=== PATIENT | male | born 1960 | race Caucasian/White ===

== ENCOUNTER 2023-10-14 11:36 | Inpatient (IN) ==
[2023-10-14] MEDS: SODIUM CHLORIDE 0.9% 1,000 ML IV SCH (11:55)
[2023-10-14 12:06] LABS: iSTAT Creatinine 2.4 mg/dl (0.6-1.3); iSTAT Hemoglobin 10.2 g/dl (14.0-18.0); iSTAT Ionized Calcium 1.1 mmol/l (1.12-1.32); iSTAT Potassium 2.7 mmol/L (3.3-5.0)
[2023-10-14 12:31] LABS: Hematocrit (blood only) 27.9 % (42.0-52.0); Hemoglobin 9.6 g/dl (14.0-18.0); Mean Corpuscular Hemoglobin 31.2 pg (25.0-34.0); Mean Corpuscular Hgb Conc 34.4 g/dL (32.0-36.0); Mean Corpuscular Volume 90.6 fL (80.0-100.0); Platelet Count 28 K/uL (130-400); RDW Coefficient of Variation 20.4 % (11.5-14.5); Red Blood Count 3.08 M/uL (4.70-6.10); White Blood Count 0.85 K/ul (4.8-10.8)
[2023-10-14] MEDS: CEFEPIME 2,000 MG/20 ML VIAL IV STA (12:37)
[2023-10-14 12:39] LABS: Albumin Level 2.6 gm/dl (3.4-5.0); BUN Creatinine Ratio 24.6 (10-20); Bilirubin Direct 0.3 mg/dl (0-0.2); Bilirubin,Total 0.6 mg/dl (0.2-1.0); Calcium 8.2 mg/dl (8.6-10.3); Creatinine Clr Calc Pharmacy 22.6 ml/min; Est GFR (African American) 31.2 ml/min; Est GFR (Non-African American) 26.9 ml/min; Magnesium 2.2 mg/dl (1.7-2.4); Potassium 2.8 mmol/L (3.5-5.1); Total Protein 5.2 gm/dl (6.0-8.3)
--- NOTE | 2023-10-14 12:41 | Emergency Department Note ---
History of Present Illness General Chief complaint: Hypotension Stated complaint: HYPOTENSION, ABNORMAL LABS Time Seen by Provider: 10/14/23 11:43 Source: patient and EMS History of Present Illness Provider complaint: Hypotension 63-year-old male with history of AML presents emergency department for hypotension. EMS brought the patient in and reports that the presents stated that the patient was weak and febrile. Patient is reporting abdominal pain. He is reporting nausea vomiting and diarrhea. According to EMS, the presenting health provider stated that the patient had a recent treatment of chemotherapy. Patient states he has not been eating or drinking for the last week. Home Medications Medication Instructions Recorded Confirmed Type allopurinol 300 mg tablet 300 mg PO DAILY 07/06/23 07/17/23 History ascorbic acid (vitamin C) 500 mg 500 mg PO DAILY 07/06/23 07/17/23 History tablet (Vitamin C) buspirone 10 mg tablet 20 mg PO BID 07/06/23 07/17/23 History ferrous sulfate 324 mg (65 mg 324 mg PO DAILY 07/06/23 07/17/23 History iron) tablet,delayed release hydroxyzine HCl 50 mg tablet 100 mg PO HS 07/06/23 07/17/23 History levofloxacin 500 mg tablet 500 mg PO DAILY 07/06/23 07/17/23 History oxcarbazepine 150 mg 150 mg PO BID 07/06/23 07/17/23 History tablet,extended release 24 hr oxcarbazepine 300 mg tablet 300 mg PO BID 07/06/23 07/17/23 History posaconazole 100 mg tablet,delayed 300 mg PO .DAILY AT NOON 07/06/23 07/17/23 History release prazosin 1 mg capsule 3 mg PO HS 07/06/23 07/17/23 History camphor-menthol topical ointment 1 applic topical BID 07/11/23 07/17/23 History cyanocobalamin (vitamin B-12) 1,000 mcg PO DAILY 07/11/23 07/17/23 History 1,000 mcg tablet (Vitamin B-12) guaifenesin 100 mg/5 mL oral liquid 300 mg PO TID PRN Cough 07/11/23 07/17/23 History mineral oil-hydrophil petrolat 1 applic topical BID 07/11/23 07/17/23 History topical ointment (DermaPhor topical ointment) venetoclax 10 mg tablet (Venclexta) 70 mg PO DAILY 07/11/23 07/17/23 History vit B complex and vit C 1 tab PO QPM 07/11/23 07/17/23 History no.24-ferrous fum 66 mg-folic 1,000 mcg tablet (Nephron FA) Allergies Allergy/AdvReac Type Severity Reaction Status Date / Time No Known Allergies Allergy Verified 07/17/23 10:29 Past Med/Surg History Problem List (Updated 10/14/23 @ 14:50 by Sandy Schmidt DO) PTSD (post-traumatic stress disorder) Anxiety Bipolar 2 disorder Acute diarrhea Neutropenic fever (Acute) Acute hypokalemia (Acute) KRISHAN (acute kidney injury) (Acute) Medical History (Updated 10/14/23 @ 14:50 by Sandy Schmidt DO) AML (acute myeloblastic leukemia) Surgical History History of hernia repair Social History Smoking Status: Unknown if ever smoked Feels Safe at Home: Yes Physical Exam Vital Signs Vital Signs - 24 hr 10/14/23 11:43 10/14/23 11:51 10/14/23 11:51 Temperature 37.1 C Temperature Source Oral Pulse Rate 108 H Pulse Rate [Apical] 105 H Pulse Rate from SpO2 Sensor Respiratory Rate 23 24 Respiratory Effort / Characteristics Short of Breath Respiratory Depth Normal Respiratory Pattern Regular Blood Pressure 91/61 L Blood Pressure [Left Arm] 106/64 Blood Pressure Mean 71 Blood Pressure Mean [Left Arm] 78 Pulse Oximetry 95 95 96 Oxygen Delivery Method Room Air Room Air Room Air Sepsis Recent Fever Within 48 Hours No Sepsis New/Unexplained Change in Mental Status No Sepsis Action Taken by Nursing Physician Notified 10/14/23 11:53 10/14/23 11:53 10/14/23 11:57 Temperature Temperature Source Pulse Rate 103 H Pulse Rate [Apical] Pulse Rate from SpO2 Sensor 104 H Respiratory Rate 22 Respiratory Effort / Characteristics Respiratory Depth Respiratory Pattern Blood Pressure 106/64 106/64 Blood Pressure [Left Arm] Blood Pressure Mean 71 71 Blood Pressure Mean [Left Arm] Pulse Oximetry 94 Oxygen Delivery Method Sepsis Recent Fever Within 48 Hours Sepsis New/Unexplained Change in Mental Status Sepsis Action Taken by Nursing 10/14/23 11:58 10/14/23 11:58 10/14/23 12:13 Temperature Temperature Source Pulse Rate 102 H Pulse Rate [Apical] 101 H 99 H Pulse Rate from SpO2 Sensor Respiratory Rate 21 21 22 Respiratory Effort / Characteristics Non-Labored Spontaneous Respiratory Depth Normal Respiratory Pattern Blood Pressure Blood Pressure [Left Arm] 106/64 94/60 L Blood Pressure Mean Blood Pressure Mean [Left Arm] 78 71 Pulse Oximetry 96 96 96 Oxygen Delivery Method Room Air Room Air Sepsis Recent Fever Within 48 Hours Sepsis New/Unexplained Change in Mental Status Sepsis Action Taken by Nursing 10/14/23 12:22 10/14/23 12:28 10/14/23 12:30 Temperature Temperature Source Pulse Rate 100 H Pulse Rate [Apical] 98 H Pulse Rate from SpO2 Sensor Respiratory Rate 22 Respiratory Effort / Characteristics Respiratory Depth Respiratory Pattern Blood Pressure 94/60 L Blood Pressure [Left Arm] 111/57 L Blood Pressure Mean 77 Blood Pressure Mean [Left Arm] 75 Pulse Oximetry 97 Oxygen Delivery Method Sepsis Recent Fever Within 48 Hours Sepsis New/Unexplained Change in Mental Status Sepsis Action Taken by Nursing 10/14/23 12:30 10/14/23 12:30 10/14/23 12:30 Temperature Temperature Source Pulse Rate 97 H Pulse Rate [Apical] Pulse Rate from SpO2 Sensor 97 H Respiratory Rate 21 Respiratory Effort / Characteristics Respiratory Depth Respiratory Pattern Blood Pressure 111/57 L 111/57 L Blood Pressure [Left Arm] Blood Pressure Mean 95 95 Blood Pressure Mean [Left Arm] Pulse Oximetry 95 Oxygen Delivery Method Sepsis Recent Fever Within 48 Hours Sepsis New/Unexplained Change in Mental Status Sepsis Action Taken by Nursing 10/14/23 12:45 10/14/23 12:45 10/14/23 13:00 Temperature Temperature Source Pulse Rate 96 H Pulse Rate [Apical] 96 H Pulse Rate from SpO2 Sensor 96 H Respiratory Rate 20 22 Respiratory Effort / Characteristics Respiratory Depth Respiratory Pattern Blood Pressure 125/62 Blood Pressure [Left Arm] 121/63 Blood Pressure Mean 90 Blood Pressure Mean [Left Arm] 82 Pulse Oximetry 95 96 Oxygen Delivery Method Sepsis Recent Fever Within 48 Hours Sepsis New/Unexplained Change in Mental Status Sepsis Action Taken by Nursing 10/14/23 13:00 10/14/23 13:00 10/14/23 13:53 Temperature Temperature Source Pulse Rate 97 H Pulse Rate [Apical] Pulse Rate from SpO2 Sensor 97 H Respiratory Rate 21 Respiratory Effort / Characteristics Respiratory Depth Respiratory Pattern Blood Pressure 121/63 121/63 104/59 L Blood Pressure [Left Arm] Blood Pressure Mean 84 84 74 Blood Pressure Mean [Left Arm] Pulse Oximetry 96 Oxygen Delivery Method Sepsis Recent Fever Within 48 Hours Sepsis New/Unexplained Change in Mental Status Sepsis Action Taken by Nursing 10/14/23 13:53 10/14/23 14:00 10/14/23 14:30 Temperature Temperature Source Pulse Rate 95 H 97 H Pulse Rate [Apical] Pulse Rate from SpO2 Sensor 95 H 98 H Respiratory Rate 21 22 Respiratory Effort / Characteristics Respiratory Depth Respiratory Pattern Blood Pressure 104/59 L 107/60 96/57 L Blood Pressure [Left Arm] Blood Pressure Mean 74 75 63 Blood Pressure Mean [Left Arm] Pulse Oximetry 97 97 Oxygen Delivery Method Sepsis Recent Fever Within 48 Hours Sepsis New/Unexplained Change in Mental Status Sepsis Action Taken by Nursing Physical Exam GENERAL: Ill-appearing. HENT: Exam performed. - Head: Normocephalic and atraumatic. - Right Ear: External ear normal. No mastoid erythema - Left Ear: External ear normal. No mastoid erythema - Mouth/Throat: The oropharynx is clear and moist. No trismus in the jaw. No dental abscesses or uvula swelling. No oropharyngeal exudate or tonsillar abscesses. EYES: Conjunctivae and EOM are normal. Pupils are equal, round, and reactive to light. Right eye exhibits no discharge. Left eye exhibits no discharge. No scleral icterus. NECK: Normal range of motion. Neck supple. No JVD present. CV: Tachycardic rate, regular rhythm, normal heart sounds and intact distal pulses. There is no peripheral edema. Palpable radial pulses bue. PULM/CHEST: Effort normal and breath sounds normal. No respiratory distress. No stridor. He has no wheezes. He has no rales. ABD: The abdomen is soft. Diffuse tenderness to palpation NEURO: Motor and sensation grossly intact. Course Course 1143: The patient was evaluated in room A1. A complete history and physical exam was performed Cardiac monitoring: An order was placed for continuous cardiac monitoring. The monitor shows a rate of 100 with sinus rhythm interpreted by sc Sepsis protocols initiated. 1246: Vital signs improved with normal saline bolus. Patient is leukopenic and thrombocytopenic. Procalcitonin is elevated. Patient was febrile according to the care home paperwork at the care home. Lactic acid within normal limits. Patient will be treated with cefepime for broad-spectrum antibiotic coverage. Potassium 2.8. Potassium repletion started in the emergency department. 1308: Vital signs stable. Spoke with care home nurse J Luis who stated that there is no Dr. THOMAS there. She states she does not know when the patient last had a chemotherapy infusion but the patient did receive venclexta yesterday. Bedside ultrasound shows scant ascites with no pocket of fluid amenable to bedside drainage secondary to proximity to bowel loops. 1315: Vital signs stable. Spoke with Dr. [facility] hematology oncology and she states that the patient does follow with them and she agrees that the patient should be admitted for his KRISHAN hypokalemia. She agrees that the patient be continued on antibiotics and be treated as neutropenic fever. Patient will be admitted to the hospitalist team. Administered Medications Potassium Chloride/Sodium Chloride (Normal Saline W/20 Meq Kcl) 20 meq in 1,000 mls @ 125 mls/hr IV .Q8H DAVID; Protocol Stop: 11/13/23 12:44 Last Admin: 10/14/23 12:51 Dose: 125 mls/hr Documented By: PRASHANT Potassium Chloride (K Jake / Wtr) 10 meq in 100 mls @ 100 mls/hr IV Q1H DAVID Stop: 10/14/23 16:44 Last Admin: 10/14/23 14:47 Dose: 100 mls/hr Documented By: Infusion: 10/14/23 14:47 Dose: Infused Documented By: Admin: 10/14/23 13:55 Dose: 100 mls/hr Documented By: Infusion: 10/14/23 13:51 Dose: Infused Documented By: Admin: 10/14/23 12:51 Dose: 100 mls/hr Documented By: PRASHANT Discontinued Medications Sodium Chloride (Nss) 1,000 mls @ 999 mls/hr IV .Q1H1M DAVID Stop: 10/14/23 12:45 Last Infusion: 10/14/23 12:57 Dose: Infused Documented By: Admin: 10/14/23 11:55 Dose: 999 mls/hr Documented By: PRASHANT Cefepime HCl (Maxipime) 2,000 mg in 20 mls @ 5 mls/min IV NOW STA; Protocol Stop: 10/14/23 12:37 Last Admin: 10/14/23 12:37 Dose: 5 mls/min Documented By: PRASHANT Medical Decision Making Laboratory Data Attestation: I reviewed the patient's lab results. 10/14/23 11:52 10/14/23 11:52 Lab Results 10/14/23 10/14/23 10/14/23 Range/Units 11:52 11:54 12:02 WBC 0.85 L* (4.8-10.8) K/ul RBC 3.08 L (4.70-6.10) M/uL Hgb 9.6 L (14.0-18.0) g/dl POC Hgb 10.2 L (14.0-18.0) g/dl Hct 27.9 L (42.0-52.0) % POC Hct 30 L (42-52) % MCV 90.6 (80.0-100.0) fL MCH 31.2 (25.0-34.0) pg MCHC 34.4 (32.0-36.0) g/dL RDW Std Deviation 65.0 H (36.4-46.3) fL RDW Coeff of Dominic 20.4 H (11.5-14.5) % Plt Count 28 L* (130-400) K/uL Immature Gran % (Auto) 9.4 % Neut % (Auto) 67.1 % Lymph % (Auto) 11.8 % Yancey % (Auto) 8.2 % Eos % (Auto) 0.0 % Baso % (Auto) 3.5 % Neut # (Auto) 0.57 L* (1.40-6.50) K/uL Lymph # (Auto) 0.10 L (1.20-3.40) K/uL Yancey # (Auto) 0.07 L (0.11-0.59) K/uL Eos # (Auto) 0.00 (0.00-0.50) K/uL Baso # (Auto) 0.03 (0.00-0.20) K/uL Immature Gran # (Auto) 0.08 (0.01-0.20) K/uL Toxic Granulation 2+ Dohle Bodies 2+ Polychromasia 1+ Anisocytosis Present Ovalocytes 1+ Echinocytes 2+ PT 11.1 (9.0-12.0) Seconds INR 1.0 (0.9-1.1) APTT 32 H (21-31) Seconds PTT Ratio 1.2 POC Sodium 138 (135-144) mmol/L Sodium 138 (136-145) mmol/L POC Potassium 2.7 L (3.3-5.0) mmol/L Potassium 2.8 L (3.5-5.1) mmol/L POC Chloride 101 (101-112) mmol/L Chloride 101 (98-107) mmol/L Carbon Dioxide 28 (21-32) mmol/L POC Total CO2 23 L (24-31) mmol/L Anion Gap 9 (3-11) POC Anion Gap 17.0 (16-25) mmol/L POC BUN 45 H (7-18) mg/dl BUN 60 H (6-23) mg/dl Creatinine 2.44 H (0.6-1.4) mg/dl POC Creatinine 2.4 H (0.6-1.3) mg/dl Est Cr Clr Drug Dosing 22.6 ml/min Est GFR ( Amer) 31.2 ml/min Est GFR (Non-Af Amer) 26.9 ml/min BUN/Creatinine Ratio 24.6 H (10-20) Glucose 110 H (70-99(Fasting)) mg/dl POC Glucose (other) 113 H (70-99) mg/dl Lactate 1.6 (0.4-2.0) mmol/L Calcium 8.2 L (8.6-10.3) mg/dl POC Ioniz Calcium Vince 1.10 L (1.12-1.32) mmol/l Magnesium 2.2 (1.7-2.4) mg/dl Total Bilirubin 0.6 (0.2-1.0) mg/dl Direct Bilirubin 0.3 H (0-0.2) mg/dl AST 19 (13-39) U/L ALT 20 (7-52) U/L Alkaline Phosphatase 82 (34-104) U/L Ammonia 18.0 (18-72) umol/L Troponin I High Sens 13.8 (0-20) pg/ml Total Protein 5.2 L (6.0-8.3) gm/dl Albumin 2.6 L (3.4-5.0) gm/dl Lipase 10 L (11-82) U/L Procalcitonin 4.65 H (0-0.5) ng/ml Adenovirus (PCR) Not Detected (NotDetected) B. pertussis DNA (PCR) Not Detected (NotDetected) B.parapertussis DNA PCR Not Detected (NotDetected) C. pneumoniae DNA (PCR) Not Detected (NotDetected) Coronavirus OC43 (PCR) Not Detected (NotDetected) Coronavirus HKU1 (PCR) Not Detected (NotDetected) Coronavirus 229E (PCR) Not Detected (NotDetected) SARS-CoV-2 (PCR) Not Detected (NotDetected) Coronavirus NL63 (PCR) Not Detected (NotDetected) Human Metapneumovir PCR Not Detected (NotDetected) Influenza Type A (PCR) Not Detected (NotDetected) Influenza Type B (PCR) Not Detected (NotDetected) M. pneumoniae (PCR) Not Detected (NotDetected) Parainfluenza 1 (PCR) Not Detected (NotDetected) Parainfluenza 2 (PCR) Not Detected (NotDetected) Parainfluenza 3 (PCR) Not Detected (NotDetected) Parainfluenza 4 (PCR) Not Detected (NotDetected) RSV (PCR) Not Detected (NotDetected) Entero/Rhino (PCR) Not Detected (NotDetected) Imaging Data Attestation: I personally reviewed and interpreted this imaging study as follows: My Impression: Chest x-ray negative. Airway clear. No pneumothorax. No consolidation. No cardiomegaly or cephalization.. No free air under the diaphragm. No fractures of the skeletal structures. Mediport in place. Radiologist's Impression: Chest X-Ray 10/14/23 11:43 XR chest 1V portable CLINICAL HISTORY: Sepsis TECHNIQUE: Single frontal radiograph of the chest was obtained. Comparison: None available at the time of this dictation. FINDINGS: Right portacatheter is seen. Calcified aortic knob is seen. The lungs are clear. No evidence of pleural effusion or pneumothorax. IMPRESSION: No acute abnormalities and in particular no radiographic evidence of pneumonia. ACT 112: Negative or not required by law. Electronically signed by: Harvey Lopez M.D. 10/14/2023 1:[address] 10/14/23 11:47 CT head/brain wo con CLINICAL HISTORY: weakness Technique: Contiguous axial CT images of the head were acquired from the base of the skull to the vertex without intravenous contrast administration. Images were viewed in brain, subdural and bone windows. Automated dose lowering techniques and/or adjustment according to patient size were utilized for this exam. Comparison: None available at the time of this dictation. Findings: The ventricles, basal cisterns, and cerebral sulci are normal. There is no acute intracranial hemorrhage or evidence of acute territorial infarction. Neither mass effect, shift of the midline structures, nor abnormal extra-axial fluid collections are shown. Imaged portions of the paranasal sinuses and mastoid air cells are clear. The orbits appear normal. There are no acute fractures of the calvaria or scalp swelling. Impression: No acute intracranial hemorrhage, no evidence of acute territorial infarction or other acute intracranial disease process. ACT 112: Negative or not required by law. Electronically signed by: Harvey Lopez M.D. 10/14/2023 12:56 PM Abdomen/Pelvis CT 10/14/23 12:03 CT abd pelvis wo con CLINICAL HISTORY: abd pain TECHNIQUE: Helical axial images of the abdomen and pelvis were obtained. Automated dose lowering techniques and/or adjustment according to patient size were utilized for this exam. This exam was performed without intravenous contrast. CT DOSE: 1440.58 mGy.cm COMPARISON: None available at the time of this dictation. FINDINGS: Lower chest: Bibasilar atelectasis versus scarring is seen. Liver: Unremarkable. No focal lesions are seen. Gallbladder and biliary tree: No calcified gallstones. Normal caliber wall. No intra- or extrahepatic biliary ductal dilation. Pancreas: Unremarkable, no focal lesions. Spleen: Unremarkable. Adrenals: Unremarkable. Kidneys and ureters: Left renal cyst is seen. Bladder: Unremarkable. Reproductive organs: Unremarkable. Bowel: Diffuse thickening and fat stranding is seen about the entirety of the colon. Lymph nodes Retroperitoneal: Unremarkable. Pelvic: Unremarkable. Mesenteric: Unremarkable. Peritoneum: Mild peritoneal stranding is seen with trace ascites. Increased vascularity is seen about the colon. Vessels: Atherosclerotic calcifications are seen. Abdominal wall: Unremarkable. Bones: Degenerative changes in the visualized spine. Grade 1 anterolisthesis seen at L4-L5. IMPRESSION: Inflammatory changes throughout the colon are compatible with a nonspecific colitis. ACT 112: Negative or not required by law. Electronically signed by: Harvey Lopez M.D. 10/14/2023 1:07 PM ECG Data Attestation: I personally reviewed and interpreted this ECG as follows: Rate (beats per minute): 108 Rhythm: + sinus tachycardia ECG Intervals/blocks: + Normal QRS, + Normal TN and + Normal QT-c ECG ST segments: + Normal ST segments [facility] Narrative 1143: The patient was evaluated in room A1. A complete history and physical exam was performed Cardiac monitoring: An order was placed for continuous cardiac monitoring. The monitor shows a rate of 100 with sinus rhythm interpreted by sc Sepsis protocols initiated. 1246: Vital signs improved with normal saline bolus. Patient is leukopenic and thrombocytopenic. Procalcitonin is elevated. Patient was febrile according to the care home paperwork at the care home. Lactic acid within normal limits. Patient will be treated with cefepime for broad-spectrum antibiotic coverage. Potassium 2.8. Potassium repletion started in the emergency department. 1308: Vital signs stable. Spoke with care home nurse J Luis who stated that there is no Dr. THOMAS there. She states she does not know when the patient last had a chemotherapy infusion but the patient did receive venclexta yesterday. Bedside ultrasound shows scant ascites with no pocket of fluid amenable to bedside drainage secondary to proximity to bowel loops. 1315: Vital signs stable. Spoke with Dr. [facility] hematology oncology and she states that the patient does follow with them and she agrees that the patient should be admitted for his KRISHAN hypokalemia. She agrees that the patient be continued on antibiotics and be treated as neutropenic fever. Patient will be admitted to the hospitalist team. Impression & Plan KRISHAN (acute kidney injury), Acute hypokalemia, Neutropenic fever Discharge Plan Visit Data Chief Complaint: Hypotension Stated Complaint: HYPOTENSION, ABNORMAL LABS ED Provider: Breezy Edouard Discharge Problem: KRISHAN (acute kidney injury), Acute hypokalemia, Neutropenic fever Patient Disposition: Admitted As Inpatient Forms Stand Alone Forms: My [facility] Prescriptions Prescriptions: No Action prazosin 1 mg Capsule 3 mg PO HS hydroxyzine HCl 50 mg Tablet 100 mg PO HS oxcarbazepine 300 mg Tablet 300 mg PO BID buspirone [BuSpar] 10 mg Tablet 20 mg PO BID allopurinol 300 mg Tablet 300 mg PO DAILY levofloxacin 500 mg Tablet 500 mg PO DAILY ferrous sulfate 324 mg (65 mg iron) Tablet,Delayed Release (Dr/Ec) 324 mg PO DAILY oxcarbazepine 150 mg Tablet Extended Release 24 Hr 150 mg PO BID Rx Instructions: must be taken on empty stomach; no food at least 2 hrs before or 1 hr after dose posaconazole 100 mg Tablet,Delayed Release (Dr/Ec) 300 mg PO .DAILY AT NOON Rx Instructions: 3 tablet dose ascorbic acid (vitamin C) [Vitamin C] 500 mg Tablet 500 mg PO DAILY cyanocobalamin (vitamin B-12) [Vitamin B-12] 1,000 mcg Tablet 1,000 mcg PO DAILY Nephron FA 66 mg iron- 1,000 mcg Tablet 1 tab PO QPM Mentholatum Ointment 1 applic TOPICAL BID Venclexta 10 mg Tablet 70 mg PO DAILY guaifenesin [Robitussin] 100 mg/5 mL Liquid 300 mg PO TID PRN (Reason: Cough) Rx Instructions: 15 ml dose DermaPhor Ointment 1 applic TOPICAL BID Referrals Referrals: Eric HALE [Primary Care Provider] -
[2023-10-14 12:45] LABS: Partial Thromboplastin Ratio 1.2; Partial Thromboplastin Time 32 Seconds (21-31); Prothrombin Time 11.1 Seconds (9.0-12.0)
[2023-10-14 12:46] LABS: Troponin I High Sensitivity 13.8 pg/ml (0-20)
[2023-10-14 12:48] LABS: Anisocytosis Present; Dohle Bodies 2+; Echinocytes 2+; Ovalocytes 1+; Polychromasia 1+; Toxic Granulation 2+
[2023-10-14 12:50] LABS: Basophils # (auto) 0.03 K/uL (0.00-0.20); Basophils % (auto) 3.5 %; Immature Granulocytes # (auto) 0.08 K/uL (0.01-0.20); Immature Granulocytes % (auto) 9.4 %; Lymphocytes % (auto) 11.8 %; Monocytes # (auto) 0.07 K/uL (0.11-0.59); Monocytes % (auto) 8.2 %; Neutrophils # (auto) 0.57 K/uL (1.40-6.50); Neutrophils % (auto) 67.1 %
[2023-10-14] MEDS: POTASSIUM CHLORIDE / WTR 10 MEQ/100 ML PLCT IV SCH (12:51)
[2023-10-14] MEDS: NSS + 20MEQ KCL 20 MEQ/1,000 ML BAG IV SCH (12:51)
--- NOTE | 2023-10-14 12:57 | CT Scan Report ---
CT head/brain wo con CLINICAL HISTORY: weakness Technique: Contiguous axial CT images of the head were acquired from the base of the skull to the luis armando tommie without intravenous contrast administration. Images were viewed in brain, subdural and bone [facility] . Automated dose lowering techniques and/or adjustment according to patient size were utilized for this exam. Comparison: None available at the time of this dictation. Findings: The ventricles, basal cisterns, and cerebral sulci are normal. There is no acute intracranial hemorrh age or evidence of acute territorial infarction. Neither mass effect, shift of the midline structures , nor abnormal extra-axial fluid collections are shown. Imaged portions of the paranasal sinuses and mastoid air cells are clear. The orbits appear normal. There are no acute fractures of the calvaria or scalp swelling. Impression: No acute intracranial hemorrhage, no evidence of acute territorial infarction or other acute intracra nial disease process. ACT 112: Negative or not required by law. Electronically signed by: Harvey Lopez M.D. 10/14/2023 12:56 PM
[2023-10-14 12:58] LABS: Adenovirus PCR Not Detected (NotDetected); Bordetella parapertussis PCR Not Detected (NotDetected); Bordetella pertussis PCR Not Detected (NotDetected); Chlamydia pneumoniae PCR Not Detected (NotDetected); Coronavirus 229E PCR Not Detected (NotDetected); Coronavirus CoV-2 (COVID19)PCR Not Detected (NotDetected); Coronavirus HKU1 PCR Not Detected (NotDetected); Coronavirus NL63 PCR Not Detected (NotDetected); Coronavirus OC43PCR Not Detected (NotDetected); Human Metapneumovirus PCR Not Detected (NotDetected); Influenza A PCR Not Detected (NotDetected); Influenza B PCR Not Detected (NotDetected); Mycoplasma pneumoniae PCR Not Detected (NotDetected); Parainfluenza Virus 1 PCR Not Detected (NotDetected); Parainfluenza Virus 2 PCR Not Detected (NotDetected); Parainfluenza Virus 3 PCR Not Detected (NotDetected); Parainfluenza Virus 4 PCR Not Detected (NotDetected); Respiratory Syncytial VirusPCR Not Detected (NotDetected); Rhinovirus/Enterovirus PCR Not Detected (NotDetected)
--- NOTE | 2023-10-14 13:09 | CT Scan Report ---
CT abd pelvis wo con CLINICAL HISTORY: abd pain TECHNIQUE: Helical axial images of the abdomen and pelvis were obtained. Automated dose lowering tech niques and/or adjustment according to patient size were utilized for this exam. This exam was perfor med without intravenous contrast. CT DOSE: 1440.58 mGy.cm COMPARISON: None available at the time of this dictation. FINDINGS: Lower chest: Bibasilar atelectasis versus scarring is seen. Liver: Unremarkable. No focal lesions are seen. Gallbladder and biliary tree: No calcified gallstones. Normal caliber wall. No intra- or extrahepatic biliary ductal dilation. Pancreas: Unremarkable, no focal lesions. Spleen: Unremarkable. Adrenals: Unremarkable. Kidneys and ureters: Left renal cyst is seen. Bladder: Unremarkable. Reproductive organs: Unremarkable. Bowel: Diffuse thickening and fat stranding is seen about the entirety of the colon. Lymph nodes Retroperitoneal: Unremarkable. Pelvic: Unremarkable. Mesenteric: Unremarkable. Peritoneum: Mild peritoneal stranding is seen with trace ascites. Increased vascularity is seen about the colon. Vessels: Atherosclerotic calcifications are seen. Abdominal wall: Unremarkable. Bones: Degenerative changes in the visualized spine. Grade 1 anterolisthesis seen at L4-L5. IMPRESSION: Inflammatory changes throughout the colon are compatible with a nonspecific colitis. ACT 112: Negative or not required by law. Electronically signed by: Harvey Lopez M.D. 10/14/2023 1:07 PM
--- NOTE | 2023-10-14 13:27 | XRay Report ---
XR chest 1V portable CLINICAL HISTORY: Sepsis TECHNIQUE: Single frontal radiograph of the chest was obtained. Comparison: None available at the time of this dictation. FINDINGS: Right portacatheter is seen. Calcified aortic knob is seen. The lungs are clear. No evidence of pleur al effusion or pneumothorax. IMPRESSION: No acute abnormalities and in particular no radiographic evidence of pneumonia. ACT 112: Negative or not required by law. Electronically signed by: Harvey Lopez M.D. 10/14/2023 1:26 PM
--- NOTE | 2023-10-14 13:51 | History & Physical Report ---
Date of Service October 14, 2023 Assessment & Plan (1) Acute hypokalemia: (2) KRISHAN (acute kidney injury): (3) Neutropenic fever: (4) Acute diarrhea: (5) Bipolar 2 disorder: (6) Anxiety: (7) PTSD (post-traumatic stress disorder): Plan Pt is a 63 yo male with a significant past medical history of 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 #Acute diarrheal illness #Neutropenic fever - pt reports last chemo session was weeks ago, follows with oncology Dr. Juáerz - WBC count low on admission, but procal 4.65 - PICC line in place; blood cx pending, - urine cx pending - CTAP shows nonspecific colitis, CXR neg, head CT unremark, stool PCR biofire pending along with c diff - continue cefepime #Pancytopenia #Hx AML on chemotherapy - Plt on admission 28, WBC count 0.85, hgb 9.6 - oncology consulted - holding home venetoclax in the setting of acute illness #KRISHAN - baseline Cr appears to be 0.8, presents with Cr 2.44 - most likely pre-renal in the setting of acute copious diarrheal illness with dehydration on admission - continue IVF, diet placed and encouraged po intake in addition to fluids #Hypokalemia - in setting of poor po intake x1 week with copious diarrheal illness and dehydration - K 2.8 on admission - IV repletion running, to recheck level tonight 8 pm #Bipolar 2 disorder #Anxiety #PTSD - continue home buspirone - continue home hydroxyzine - continue home prazosin - continue home oxcarbazepine DVT ppx: Deferred chemical ppx today in the setting of recurrent nose bleeds and marked thrombocytopenia <50, SCDs ordered History of Present Illness Chief Complaint: Acute illness Primary Care Provider: GEOFFREY Reyes Pt is a 63 yo male with a significant past medical history of 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 Pt states that for the last week or so he has felt generally unwell, and for the last 5-6 days he has had diarrhea 8+ times each day that has been watery but nonbloody. He states that he has also had fever, chills, diffuse body aches, and sweats for the same amount of time. No chest pain, shortness of breath, nausea or vomiting, or dysuria today or the last few days. He states he has never had anything like this before. He also notes several episodes of nosebleeds the last few days, but no blood in the urine or stool. He states he had chemotherapy months ago in [place] that seemed to go fine, and his last chemo session was a few months ago. Overall pt is not overly conversational today to discuss much of past medical history but denies prior DC or CVA. Allergies Allergy/AdvReac Type Severity Reaction Status Date / Time No Known Allergies Allergy Verified 10/14/23 15:04 Home Medications Medication Instructions Recorded Confirmed Type allopurinol 300 mg tablet 300 mg PO DAILY 07/06/23 10/14/23 History ascorbic acid (vitamin C) 500 mg 500 mg PO DAILY 07/06/23 10/14/23 History tablet (Vitamin C) buspirone 10 mg tablet 20 mg PO BID 07/06/23 10/14/23 History ferrous sulfate 324 mg (65 mg 324 mg PO DAILY 07/06/23 10/14/23 History iron) tablet,delayed release oxcarbazepine 150 mg 150 mg PO BID 07/06/23 10/14/23 History tablet,extended release 24 hr oxcarbazepine 300 mg tablet 300 mg PO BID 07/06/23 10/14/23 History posaconazole 100 mg tablet,delayed 300 mg PO .DAILY AT NOON 07/06/23 10/14/23 History release prazosin 1 mg capsule 3 mg PO HS 07/06/23 10/14/23 History cyanocobalamin (vitamin B-12) 1,000 mcg PO DAILY 07/11/23 10/14/23 History 1,000 mcg tablet (Vitamin B-12) venetoclax 10 mg tablet (Venclexta) 20 mg PO DAILY 07/11/23 10/14/23 History acyclovir 400 mg tablet 400 mg PO BID 10/14/23 10/14/23 History bismuth subsalicylate 262 mg/15 mL 262 mg PO TID PRN DIRECTED 10/14/23 10/14/23 History oral suspension hydroxyzine pamoate 50 mg capsule 100 mg PO HS 10/14/23 10/14/23 History potassium chloride 20 mEq 20 meq PO DAILY 10/14/23 10/14/23 History tablet,extended release venetoclax 50 mg tablet (Venclexta) 50 mg PO DAILY 10/14/23 10/14/23 History vit B complex and vit C 1 tab PO QPM 10/14/23 10/14/23 History no.24-ferrous fum 66 mg-folic 1,000 mcg tablet (Nephron FA) Past Med/Surg History Problem List (Updated 10/14/23 @ 14:50 by Sandy Schmidt DO) PTSD (post-traumatic stress disorder) Anxiety Bipolar 2 disorder Acute diarrhea Neutropenic fever (Acute) Acute hypokalemia (Acute) KRISHAN (acute kidney injury) (Acute) Medical History (Updated 10/14/23 @ 14:50 by Sandy Schmidt DO) AML (acute myeloblastic leukemia) Surgical History History of hernia repair Social History Smoking Status: Unknown if ever smoked Feels Safe at Home: Yes Review of Systems Review of Systems: Per HPI. Physical Exam Physical Exam: General: Fatigued appearing male, minimally conversational but oriented HEENT: Normocephalic, Cardio: Regular rate and rhythm, no murmur, Resp: Lungs clear to auscultation b/l, no wheezes or rhonchi, GI: Soft but diffusely tender, bowel sounds active Skin: Warm, pink, dry, no rashes on visible skin of arms or torso Results & Data Results & Data Vital Signs (Past 12 Hours) Vital Signs Temp Pulse Pulse Resp BP BP Pulse Ox 10/14/23 13:00 121/63 10/14/23 13:00 96 H 22 121/63 96 10/14/23 12:45 125/62 10/14/23 12:45 96 H 20 95 10/14/23 12:30 111/57 L 10/14/23 12:30 111/57 L 10/14/23 12:30 97 H 21 95 10/14/23 12:30 98 H 22 111/57 L 97 10/14/23 12:28 100 H 10/14/23 12:22 94/60 L 10/14/23 12:13 99 H 22 94/60 L 96 10/14/23 11:58 101 H 21 106/64 96 10/14/23 11:58 102 H 21 96 10/14/23 11:57 103 H 22 94 10/14/23 11:53 106/64 10/14/23 11:53 106/64 10/14/23 11:51 105 H 24 106/64 96 10/14/23 11:51 95 10/14/23 11:43 37.1 C 108 H 23 91/61 L 95 O2 Del Method 10/14/23 13:00 10/14/23 13:00 10/14/23 12:45 10/14/23 12:45 10/14/23 12:30 10/14/23 12:30 10/14/23 12:30 10/14/23 12:30 10/14/23 12:28 10/14/23 12:22 10/14/23 12:13 10/14/23 11:58 Room Air 10/14/23 11:58 Room Air 10/14/23 11:57 10/14/23 11:53 10/14/23 11:53 10/14/23 11:51 Room Air 10/14/23 11:51 Room Air 10/14/23 11:43 Room Air Supervising Physician Co-Signing Physician Notes Patient seen and examined, chart reviewed, case discussed with Dr. Shaw and I agree with the assessment and plan as above except as otherwise noted Labs and images reviewed Bello is a 63-year-old male with past medical history of bipolar 2 disorder, alpha thalassemia, hyperlipidemia, acute myelo blastic leukemia, chronic myeloproliferative disease who presents to the ER with hypotension and tachycardia after chemo last t reatment several weeks ago He has had nausea, vomiting, diarrhea in the past few days. He is leukopenic at 0.85 with neutropenia of 0.57, thrombocytopenia at 28. He is hypokalemic, hypocalcemic, and with a KRISHAN on admission. Baseline creatinine is less than 1, creatinine 2.44 on admission. Procalcitonin is elevated at 4.65. +liquid diarrhea for 5-6 days. Multiple BMs /day. No respiratory sx. No rash CTA/P shows nonspecific colitis, CThead is without acute finding, chest x-ray does not show evidence of lobar pneumonia and shows no acute abnormalities Lactate was not elevated At bedside patient is fatigued appearing. Abdomen is softly distended, mildly tender diffusely without rebound or involuntary guarding. Skin is warm and dry. No rashes. Regular, tachycardic, lungs are clear. Follows with [facility], Dr. Juárez. Patient notes he has leukemia but is not a good historian of what type of leukemia he has or what chemo he has been on. Records and collateral are pending. Venclexta held Agree w/ stool biofire and PCR. Empiric coverage due to neutropenia w/ procalcitonin and poor clinical appearance. Continue cefepime. BC pending. If C diff+ --> Vancomycin PO QID. KRISHAN likely prerenal. S/p fluids, continue IVFM LR 120cc/hr. Trend daily. CT w/o renal abdnormalities. Neutropenic precautions Agree with assessment and workup above Resident Activity Tracking Resident Involvement: Resident Care Provided Care Provided: Adult [facility] Medicine
[2023-10-14] MEDS: PRAZOSIN HCL 1 MG CAP PO SCH (20:44)
[2023-10-14] MEDS: OXcarbazepine 150 MG TABLET PO SCH (20:47)
[2023-10-14] MEDS ORDERED: OXCARBAZEPINE 150 MG PO SCH (21:00)
[2023-10-14] MEDS ORDERED: busPIRone 5 MG TAB PO SCH (21:00)
[2023-10-14] MEDS ORDERED: hydrOXYzine HCl 25 MG TAB PO PRN (21:00)
[2023-10-14 21:32] LABS: BUN Creatinine Ratio 29.1 (10-20); Calcium 7.6 mg/dl (8.6-10.3); Creatinine Clr Calc Pharmacy 29.2 ml/min; Est GFR (African American) 42.5 ml/min; Est GFR (Non-African American) 36.7 ml/min; Potassium 3.6 mmol/L (3.5-5.1)
[2023-10-14] MEDS: CEFEPIME 1,000 MG in SYRINGE 0 ML IV SCH (23:55)
[2023-10-15] MEDS: ACETAMINOPHEN 325 MG TAB PO PRN (03:44)
[2023-10-15 04:09] LABS: Appearance Urine Turbid (Clear); Bacteria Urine Automated None Seen (None Seen); Bilirubin Urine 1+ (Negative); Blood Urine Negative (Negative); Cast Urine Automated >20 /lpf (0-2); Color Urine Dark Yellow; Glucose Urine UA Negative (Negative); Granular Casts Urine Present /lpf (None Prsent); Hyaline Casts Urine Present /lpf (None Presnt); Ketones Urine Negative (Negative); Leukocyte Esterase Urine Trace (Negative); Nitrite Urine Negative (Negative); Protein Urine 1+ (Negative); RBC Urine Automated 0-2 /hpf (0-2); Urobilinogen Urine Negative (Negative); WBC Urine Automated 0-5 /hpf (0-5); White Blood Cell Casts Urine Present /lpf (None Prsent)
--- NOTE | 2023-10-15 06:23 | Electrocardiogram Report ---
Test Reason : Blood Pressure : / mmHG Vent. Rate : 108 BPM Atrial Rate : 108 BPM P-R Int : 126 ms QRS Dur : 086 ms QT Int : 404 ms P-R-T Axes : 051 025 069 degrees QTc Int : 541 ms Sinus tachycardia Nonspecific ST and T wave abnormality Abnormal ECG No previous ECGs available Confirmed by Link Benito ([id number]) on 10/15/2023 6:23:15 AM Referred By: [facility] Confirmed By:Link Benito
[2023-10-15 07:32] LABS: Albumin Globulin Ratio 1.1 (0.9-2); Albumin Level 2.1 gm/dl (3.4-5.0); BUN Creatinine Ratio 28.8 (10-20); Calcium 7.1 mg/dl (8.6-10.3); Creatinine Clr Calc Pharmacy 28.9 ml/min; Est GFR (Non-African American) 36.2 ml/min; Magnesium 2.2 mg/dl (1.7-2.4); Potassium 3.5 mmol/L (3.5-5.1); Total Protein 4.1 gm/dl (6.0-8.3)
--- NOTE | 2023-10-15 07:39 | Hospitalist Progress Note ---
Date of Service October 15, 2023 Assessment & Plan (1) Acute hypokalemia: (2) KRISHAN (acute kidney injury): (3) Neutropenic fever: (4) Acute diarrhea: (5) Bipolar 2 disorder: (6) Anxiety: (7) PTSD (post-traumatic stress disorder): (8) Severe sepsis: (9) C. difficile colitis: Plan Pt is a 63 yo male with a significant past medical history of 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 #Acute diarrheal illness #Neutropenic fever #c dif colitis Patient acutely ill with severe sepsis - tachycardia, fever, hypotension, leukopenia. PICC line in place. CTAP nonspecific colitis. Work up significant for c. dif. UCx pending. BCx / gram positive cocci. Biofire positive for staph epidermidis. On cefepime, flagyl, and PO vanc. Upon discussion with Dr. Juárez (oncology) patient would benefit from transfer to [facility] tertiary care center as he may be having progression of leukemia/unknown source of infection and he does receive care at [facility]. Discussed case with Dr. Perera who is the accepting physician. Plan for transfer for first available bed and BLS transport. #Pancytopenia #Hx AML on chemotherapy Holding home venetoclax in the setting of acute illness. Reportedly last From Dr. Juárez's HPI "The patient is a very pleasant 63-year-old gentleman who is very well-known to me who was previously diagnosed with acute myeloid leukemia earlier this year was evaluated at [facility] where he was started on treatment with Vidaza plus venetoclax. He had adverse grayscale and 22 AML with multiple pathological mutations including ASXL1, U2AF1, STAG2, PHF6, RUNX1, cytogenetics were normal. At that time bone marrow biopsy had 60% blasts. He received induction therapy with azacitidine and venetoclax on 06/23/2023. Subsequently a post induction bone marrow biopsy showed MRD positive CR. He was treated with consolidation azacitidine plus venetoclax, the overall plan was to consolidate him with an allogenic stem cell transplant however since he is an inmate at [facility] he could not undergo consolidative stem cell transplant. I evaluated him in the clinic recently to continue treatment with Vidaza plus venetoclax however before he could start the next cycle of Vidaza plus venetoclax he was admitted in the hospital again." #KRISHAN - baseline Cr appears to be 0.8, presents with Cr 2.44 - most likely pre-renal in the setting of acute copious diarrheal illness with dehydration on admission - continue IVF, diet placed and encouraged po intake in addition to fluids #Hypokalemia - in setting of poor po intake x1 week with copious diarrheal illness and dehydration - K 2.8 on admission - IV repletion running, to recheck level tonight 8 pm #Bipolar 2 disorder #Anxiety #PTSD - continue home buspirone - continue home hydroxyzine - continue home prazosin - continue home oxcarbazepine DVT ppx: Deferred chemical ppx today in the setting of recurrent nose bleeds and marked thrombocytopenia <50, SCDs ordered Admission and Anticipated Discharge Date Admission Date: October 14, 2023 Supervising Physician Co-Signing Physician Notes Attending attestation Pt seen and examined in concert with Dr. Tabares. In agreement with the documented findings as noted in the resident documentation with any exceptions or additions as noted here. Ongoing diarrhea with improved cramping abdominal discomfort. On examination, S1/S2 nl RRR no MCG. CTAB. Abd nondistended, diffusely mildly TTP C. diff +ve on pended study C. diff colitis/diarrhea - initaition of vancomycin, metronidazole therapy for pancytopenic patient. Contact precautions. Panycytopenia w/o h/o AML - heme/onc consult - trend CBC Else see resident documentation as noted. Subjective Patient seen at bedside this AM. Ill appearing. Continued diarrhea and nausea. Fevers overnight. Generally feels unwell. No CP or SOB. Review of Systems 2 Review of Systems: See HPI Physical Exam 2 Physical Exam: General: Fatigued and ill appearing male, minimally conversational but oriented HEENT: AT SC Cardio: Regular rate and rhythm, no murmur, Resp: Lungs clear to auscultation b/l, no wheezes or rhonchi, GI: Soft but diffusely tender, bowel sounds active Skin: Warm, pink, dry, no rashes on visible skin of arms or torso Results & Data Results & Data Vital Signs (Past 12 Hours) Vital Signs Temp Pulse Pulse Resp BP BP Pulse Ox 10/15/23 04:45 37 C 10/15/23 03:39 38.9 C H 104 H 17 103/57 L 94 10/14/23 23:32 37.9 C H 105 H 17 105/55 L 102 H 10/14/23 22:05 117 H O2 Del Method 10/15/23 04:45 10/15/23 03:39 Room Air 10/14/23 23:32 Room Air 10/14/23 22:05 Laboratory Results 10/15/23 06:13 10/15/23 06:13 Resident Activity Tracking Resident Involvement: Resident Care Provided Care Provided: Adult Hospital Medicine
[2023-10-15 07:45] LABS: Hematocrit (blood only) 22.1 % (42.0-52.0); Hemoglobin 7.7 g/dl (14.0-18.0); Mean Corpuscular Hemoglobin 31.8 pg (25.0-34.0); Mean Corpuscular Hgb Conc 34.8 g/dL (32.0-36.0); Mean Corpuscular Volume 91.3 fL (80.0-100.0); Platelet Count 20 K/uL (130-400); RDW Standard Deviation 63.5 fL (36.4-46.3); Red Blood Count 2.42 M/uL (4.70-6.10); White Blood Count 0.72 K/ul (4.8-10.8)
[2023-10-15 07:56] LABS: Toxic Granulation Occasional
[2023-10-15 08:06] LABS: Basophils # (auto) 0.01 K/uL (0.00-0.20); Basophils % (auto) 1.4 %; Lymphocytes # (auto) 0.07 K/uL (1.20-3.40); Lymphocytes % (auto) 9.7 %; Monocytes # (auto) 0.09 K/uL (0.11-0.59); Monocytes % (auto) 12.5 %; Neutrophils # (auto) 0.55 K/uL (1.40-6.50); Neutrophils % (auto) 76.4 %
[2023-10-15 08:07] LABS: Dohle Bodies 1+; Echinocytes 1+; Ovalocytes 1+; Polychromasia 1+
[2023-10-15 12:12] LABS: A calco-baum cmplx NotReported Not Detected (NotDetected); Bact fragilis Not Reported Not Detected (NotDetected); Blood Culture Id Panel See PCR Comment (NotDetected); C auris Not Reported Not Detected (NotDetected); Calbicans Not Reported Not Detected (NotDetected); Candida glabrata Not Reported Not Detected (NotDetected); Candida krusei Not Reported Not Detected (NotDetected); Cneoformans/gatti Not Reported Not Detected (NotDetected); Cparapsilosis Not Reported Not Detected (NotDetected); E cloacae compx Not Reported Not Detected (NotDetected); Efaecalis Not Reported Not Detected (NotDetected); Efaecium Not Reported Not Detected (NotDetected); Enterobacterales Not Reported Not Detected (NotDetected); Escherichia coli Not Reported Not Detected (NotDetected); H influenzae Not Reported Not Detected (NotDetected); K aerogenes Not Reported Not Detected (NotDetected); Koxytoca Not Reported Not Detected (NotDetected); Kpneumoniae grp Not Reported Not Detected (NotDetected); Lmonocyt Not Reported Not Detected (NotDetected); N meningitidis Not Reported Not Detected (NotDetected); P aeruginosa Not Reported Not Detected (NotDetected); Proteus spp Not Reported Not Detected (NotDetected); Salmonella spp Not Reported Not Detected (NotDetected); Staph lugdunensis Not Reported Not Detected (NotDetected); Staph spp. Not Reported DETECTED (NotDetected); Staphaureus Not Reported Not Detected (NotDetected); Staphepi Not Reported DETECTED (NotDetected); Staphylococcus spp. DETECTED (NotDetected); Stenmaltophilia Not Reported Not Detected (NotDetected); Strep agal(GrpB) Not Reported Not Detected (NotDetected); Strep pneum Not Reported Not Detected (NotDetected); Strep pyog (GrpA) Not Reported Not Detected (NotDetected); Strep spp Not Reported Not Detected (NotDetected); mecAC Resistant Gene Not Detected (NotDetected)
[2023-10-15 12:16] LABS: Staphylococcus epidermidis DETECTED (NotDetected)
[2023-10-15 13:37] LABS: Cdiff Toxin B Gene (2yr or >) Positive Cdiff Gene (Neg)
[2023-10-15 14:19] LABS: Cdiff Antigen Positive
[2023-10-15 14:21] LABS: Cdiff Toxin A+B Positive Cdiff Toxin (Negative)
[2023-10-15] MEDS ORDERED: PROCHLORPERAZINE 5 MG in SYRINGE 4 ML IV PRN (15:00)
[2023-10-15] MEDS: metroNIDAZOLE 500 MG/100 ML BAG IV SCH (15:05)
[2023-10-15 15:31] LABS: Adenovirus F 40/41 PCR Not Detected (NotDetected); Astrovirus PCR Not Detected (NotDetected); Campylobacter PCR Not Detected (NotDetected); Cryptosporidium PCR Not Detected (NotDetected); Cyclospora cayetanensis PCR Not Detected (NotDetected); Entamoeba histolytica PCR Not Detected (NotDetected); Enteroaggregative E.coli(EAEC) Not Detected (NotDetected); Enteropathogenic E.coli (EPEC) Not Detected (NotDetected); Enterotoxigenic E.coli (ETEC) Not Detected (NotDetected); Giardia lamblia PCR Not Detected (NotDetected); Norovirus GI/GII PCR Not Detected (NotDetected); Plesiomonas shigelloides PCR Not Detected (NotDetected); Rotavirus A PCR Not Detected (NotDetected); Salmonella PCR Not Detected (NotDetected); Sapovirus PCR Not Detected (NotDetected); Shiga-like Toxin E.coli (STEC) Not Detected (NotDetected); Shigella/Enteroinvasive E.coli Not Detected (NotDetected); Vibrio cholerae PCR Not Detected (NotDetected); Vibrio species PCR Not Detected (NotDetected); Yersinia enterocolitica PCR Not Detected (NotDetected)
--- NOTE | 2023-10-15 16:38 | Oncology Consultation ---
Date of Consultation October 15, 2023 Assessment & Plan (1) AML (acute myeloblastic leukemia): adverse risk acute myeloid leukemia. The patient was scheduled to start the next cycle of Vidaza plus venetoclax this week however he is significantly pancytopenic and has been admitted to [facility]. I am concerned about progression of AML since his bone marrow biopsy revealed MRD positive disease post induction. Her she had plans for consolidative stem cell transplant, which never came to fruition given that he is an inmate at [facility].. My recommendation at this point would be a transfer to [facility] since we may be dealing with progression of acute leukemia which can be diagnosed in the bone marrow biopsy and if he needs second line induction treatment or induction with something like 7+3 that can be done in [place]. Continue prophylactic antibiotics for the neutropenia continue broad-spectrum antibiotics for neutropenic fever in the hospital transfuse if hemoglobin is less than 7 g/dL or the platelet count is less than 10,000/mcL or if the patient is actively bleeding. Plan Thank you for this interesting hematological consult. A totla of 60 minutes were spent in counselling and coordination of care. History of Present Illness Reason for Consultation: Acute myeloid leukemia Attending Physician: Georgi Ugalde MD History of Present Illness the patient is a very pleasant 63-year-old gentleman who is very well-known to me who was previously diagnosed with acute myeloid leukemia earlier this year was evaluated at [facility] where he was started on treatment with Vidaza plus venetoclax. He had adverse grayscale and 22 AML with multiple pathological mutations including ASXL1, U2AF1, STAG2, PHF6, RUNX1, cytogenetics were normal. At that time bone marrow biopsy had 60% blasts. He received induction therapy with azacitidine and venetoclax on 06/23/2023. Subsequently a post induction bone marrow biopsy showed MRD positive CR. He was treated with consolidation azacitidine plus venetoclax, the overall plan was to consolidate him with an allogenic stem cell transplant however since he is an inmate at [facility] [place] he could not undergo consolidative stem cell transplant. I evaluated him in the clinic recently to continue treatment with Vidaza plus venetoclax however before he could start the next cycle of Vidaza plus venetoclax he was admitted in the hospital again. Allergies Allergy/AdvReac Type Severity Reaction Status Date / Time No Known Allergies Allergy Verified 10/14/23 15:04 Home Medications Medication Instructions Recorded Confirmed Type allopurinol 300 mg tablet 300 mg PO DAILY 07/06/23 10/14/23 History ascorbic acid (vitamin C) 500 mg 500 mg PO DAILY 07/06/23 10/14/23 History tablet (Vitamin C) buspirone 10 mg tablet 20 mg PO BID 07/06/23 10/14/23 History ferrous sulfate 324 mg (65 mg 324 mg PO DAILY 07/06/23 10/14/23 History iron) tablet,delayed release oxcarbazepine 150 mg 150 mg PO BID 07/06/23 10/14/23 History tablet,extended release 24 hr oxcarbazepine 300 mg tablet 300 mg PO BID 07/06/23 10/14/23 History posaconazole 100 mg tablet,delayed 300 mg PO .DAILY AT NOON 07/06/23 10/14/23 History release prazosin 1 mg capsule 3 mg PO HS 07/06/23 10/14/23 History cyanocobalamin (vitamin B-12) 1,000 mcg PO DAILY 07/11/23 10/14/23 History 1,000 mcg tablet (Vitamin B-12) venetoclax 10 mg tablet (Venclexta) 20 mg PO DAILY 07/11/23 10/14/23 History acyclovir 400 mg tablet 400 mg PO BID 10/14/23 10/14/23 History bismuth subsalicylate 262 mg/15 mL 262 mg PO TID PRN DIRECTED 10/14/23 10/14/23 History oral suspension hydroxyzine pamoate 50 mg capsule 100 mg PO HS 10/14/23 10/14/23 History potassium chloride 20 mEq 20 meq PO DAILY 10/14/23 10/14/23 History tablet,extended release venetoclax 50 mg tablet (Venclexta) 50 mg PO DAILY 10/14/23 10/14/23 History vit B complex and vit C 1 tab PO QPM 10/14/23 10/14/23 History no.24-ferrous fum 66 mg-folic 1,000 mcg tablet (Nephron FA) Patient History Medical History (Updated 10/14/23 @ 14:50 by Sandy Schmidt DO) AML (acute myeloblastic leukemia) Surgical History History of hernia repair Social History Smoking Status: Former smoker Tobacco Type: E-cigarettes / Vaping Second Hand Exposure: No; Do You Dip or Chew Tobacco: No; Tobacco Cessation Education Requested by Patient: No Hx Alcohol Use: No Hx Substance Use: No Preferred Language: Cantonese Sami Communication Ability: Effective Scalp Treatment Operator Required: No Beliefs That Will Affect Care: None Current Living Situation: Other Current Living Situation Comment: [facility] Other Information That Helps Us Care for You: No Feels Safe at Home: Yes Safety Concerns: Feels Safe At This Time Assistive Devices: None Review of Systems Review of Systems: Review of systems positive for fatigue, tiredness, shortness of breath, fever and chills Constitutional: as per Subjective / HPI Eyes: as per Subjective / HPI Ear, Nose, Mouth, Throat: as per Subjective / HPI Respiratory: as per Subjective / HPI Cardiovascular: as per Subjective / HPI Gastrointestinal: as per Subjective / HPI Genitourinary: + as per Subjective / HPI Musculoskeletal: as per Subjective / HPI Integumentary: as per Subjective / HPI Neurologic: as per Subjective / HPI Psychiatric: as per Subjective / HPI Endocrine: as per Subjective / HPI Hematologic / Lymphatic: as per Subjective / HPI Allergy / Immunological: as per Subjective / HPI Physical Exam Constitutional: WD/WN, vitals as above Eyes: PERRL, conjunctivae normal, anicteric sclerae ENMT: external ear and nose normal, oropharynx normal Neck: trachea midline, no thyromegaly Respiratory: normal respiratory effort, lungs clear to auscultation Cardiovascular: RRR, no murmur, no edema Gastrointestinal (Abdomen): normal bowel sounds, soft, nontender, no hepatosplenomegaly Musculoskeletal: no cyanosis or clubbing, extremities motor strength 5/5 Skin: no rashes, warm and dry Neurologic: patellar DTR's 2+ bilat, sensation intact Psychiatric: A+Ox3, euthymic affect Genitourinary: no testicular masses, no penis abnormality Lymphatic: no cervical or axillary lymphadenopathy Results & Data Vital Signs (Past 12 Hours) Vital Signs Temp Pulse Pulse Resp BP BP Pulse Ox 10/15/23 15:00 37.1 C 102 H 18 108/62 96 10/15/23 11:24 38.5 C H 109 H 18 105/65 94 10/15/23 08:00 36.9 C 102 H 18 109/58 L 95 10/15/23 07:28 98 H 10/15/23 04:45 37 C O2 Del Method 10/15/23 15:00 Room Air 10/15/23 11:24 Room Air 10/15/23 08:00 Room Air 10/15/23 07:28 10/15/23 04:45
[2023-10-15] MEDS: CHERRY SYRUP 5 ML UDP PO SCH (17:48)
[2023-10-15] MEDS: VANCOMYCIN HCL 500 MG/10 ML SOLN PO SCH (17:48)
[2023-10-16] MEDS ORDERED: VANCOMYCIN CONSULT ACTIVE PRN (08:03)
[2023-10-16] MEDS ORDERED: VANCOMYCIN HCL 1,000 MG in SODIUM CHLORIDE 0.9% 500 ML IV SCH (08:15)
[2023-10-16 08:38] LABS: Hematocrit (blood only) 23.5 % (42.0-52.0); Hemoglobin 8.3 g/dl (14.0-18.0); Mean Corpuscular Hemoglobin 31.6 pg (25.0-34.0); Mean Corpuscular Hgb Conc 35.3 g/dL (32.0-36.0); Mean Corpuscular Volume 89.4 fL (80.0-100.0); Platelet Count 20 K/uL (130-400); RDW Standard Deviation 62.9 fL (36.4-46.3); Red Blood Count 2.63 M/uL (4.70-6.10); White Blood Count 0.99 K/ul (4.8-10.8)
--- NOTE | 2023-10-16 08:40 | Pharmacy Report ---
Pharmacy PK ABX Note - Date of Service October 16, 2023 - Assessment and Plan Assessment 63 year old M receiving empiric cefepime, metronidazole, and PO vancomycin for treatment of sepsis/neutropenic fever likely secondary to GI infection/cdiff, now ordered IV vancomycin for broader overall coverage. Pertinent PMH includes AML (on chemo, immunocompromised, pancytopenic) and current KRISHAN (SCr: 2.44 mg/dL on admission, now 1.5 mg/dL). Plan is to transfer to [facility]. Pertinent microbiologic data includes: blood cultures 1 of 2 sets growing gram- positive cocci clusters (Staphylococcus epidermidis, mecA/C gene not detected per BCID2), Cdiff gene/toxin both positive, and urine culture pending. Blood culture results may represent contamination and would likely be covered by cefepime given lack of resistance gene present. Broader coverage is reasonable at this time given immunocompromise. Plan Vancomycin * Loading dose: 1250 mg IV x 1 * Maintenance dose: 1000 mg IV every 24 hours * Regimen is predicted to achieve target AUC/HOANG of 400-600 mg/L.hr * If patient still admitted, will reassess SCr in AM and adjust dosing/order level if needed Pharmacy will continue to follow and will adjust dose/frequency as necessary. Thank you. Pharmacy has transitioned to AUC monitoring for vancomycin. AUC/HOANG is the preferred PK/PD target and is associated with decreased risk of nephrotoxicity compared to traditional trough targets.
[2023-10-16 08:42] LABS: Albumin Globulin Ratio 0.9 (0.9-2); Bilirubin,Total 1.4 mg/dl (0.2-1.0); Calcium 7.4 mg/dl (8.6-10.3); Creatinine Clr Calc Pharmacy 36.8 ml/min; Est GFR (African American) 56.2 ml/min; Est GFR (Non-African American) 48.5 ml/min; Globulin 2.2 gm/dl (2.5-4.0); Potassium 4.2 mmol/L (3.5-5.1); Total Protein 4.2 gm/dl (6.0-8.3)
[2023-10-16 08:44] LABS: Basophils # (auto) 0.02 K/uL (0.00-0.20); Immature Granulocytes # (auto) 0.01 K/uL (0.01-0.20); Lymphocytes # (auto) 0.13 K/uL (1.20-3.40); Lymphocytes % (auto) 13.1 %; Monocytes # (auto) 0.13 K/uL (0.11-0.59); Monocytes % (auto) 13.1 %; Neutrophils % (auto) 70.8 %
[2023-10-16] MEDS: VANCOMYCIN HCL 1,250 MG in SODIUM CHLORIDE 0.9% 250 ML IV ONE (08:44)
--- NOTE | 2023-10-16 11:36 | Discharge Summary ---
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 Pt states that for the last week or so he has felt generally unwell, and for the last 5-6 days he has had diarrhea 8+ times each day that has been watery but nonbloody. He states that he has also had fever, chills, diffuse body aches, and sweats for the same amount of time. No chest pain, shortness of breath, nausea or vomiting, or dysuria today or the last few days. He states he has never had anything like this before. He also notes several episodes of nosebleeds the last few days, but no blood in the urine or stool. He states he had chemotherapy months ago in [place] that seemed to go fine, and his last chemo session was a few months ago. Overall pt is not overly conversational today to discuss much of past medical history but denies prior MT or CVA. Admission Exam Per Admitting Provider General: Fatigued appearing male, minimally conversational but oriented HEENT: Normocephalic, Cardio: Regular rate and rhythm, no murmur, Resp: Lungs clear to auscultation b/l, no wheezes or rhonchi, GI: Soft but diffusely tender, bowel sounds active Skin: Warm, pink, dry, no rashes on visible skin of arms or torso Principal Diagnosis neutropenic fever, sepsis Discharge Exam Gen: ill appearing patient in NAD, appears older than stated age, thin appearing HEENT: AT [place] MMM Resp: no increased work of breathing CV: clinically well perfused Abd: non-distended MSK: no obvious deformities Skin: no rashes or bruising Neuro: alert and oriented Psych: appropriate mood and affect Discharge Data Allergies Allergy/AdvReac Type Severity Reaction Status Date / Time No Known Allergies Allergy Verified 10/14/23 15:04 Consultations 10/14/23 13:48 ED Decision to Admit Stat 10/14/23 15:33 Consult Oncology Routine 10/15/23 16:55 Burn CD for patient Stat Ordered Studies 10/14/23 11:47 CT head/brain wo con Stat 10/14/23 12:03 CT abd pelvis wo con Stat Hospital Course (1) Acute hypokalemia: (2) KRISHAN (acute kidney injury): (3) Neutropenic fever: (4) Acute diarrhea: (5) Bipolar 2 disorder: (6) Anxiety: (7) PTSD (post-traumatic stress disorder): (8) Severe sepsis: (9) C. difficile colitis: Plan Pt is a 63 yo male with a significant past medical history of AML currently on chemotherapy with last tx few weeks ago per pt, bipolar 2 disorder, alpha thala ssemia, hyperlipidemia, and chronic myeloproliferative disease who presents to the hospital on 10/13 for acute diarrheal illness with hypotension, KRISHAN, and marked thrombocytopenia. #Acute diarrheal illness #Neutropenic fever #c dif colitis Patient acutely ill with severe sepsis - tachycardia, fever, hypotension, leukopenia. PICC line in place. CTAP nonspecific colitis. Work up significant for c. dif. UCx pending. BCx / gram positive cocci. Biofire positive for staph epidermidis. With patient's immunocompromised status reasonable to add on IV vanc. On cefepime, flagyl, IV vanc and PO vanc. Upon discussion with Dr. Juárez (oncology) patient would benefit from transfer to [facility] tertiary care center as he may be having progression of leukemia/unknown source of infection and he does receive care at [facility]. Discussed case with Dr. Perera who is the accepting physician. Plan for transfer for first available bed and BLS transport. #Pancytopenia #Hx AML on chemotherapy Holding home venetoclax in the setting of acute illness. From Dr. 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 He had adverse grayscale and 22 AML with multiple pathological mutations including ASXL1, U2AF1, STAG2, PHF6, RUNX1, cytogenetics were normal. At that time bone marrow biopsy had 60% blasts. He received induction therapy with azacitidine and venetoclax on 06/23/2023. Subsequently a post induction bone marrow biopsy showed MRD positive CR. He was treated with consolidation azacitidine plus venetoclax, the overall plan was to consolidate him with an allogenic stem cell transplant however since he is an inmate at [facility] in [place] he could not undergo consolidative stem cell transplant. I evaluated him in the clinic recently to continue treatment with Vidaza plus venetoclax however before he could start the next cycle of Vidaza plus venetoclax he was admitted in the hospital again." #KRISHAN - baseline Cr appears to be 0.8, presents with Cr 2.44 - most likely pre-renal in the setting of acute copious diarrheal illness with dehydration on admission - continue IVF, diet placed and encouraged po intake in addition to fluids #Hypokalemia - in setting of poor po intake x1 week with copious diarrheal illness and dehydration - K 2.8 on admission - IV repletion running, to recheck level tonight 8 pm #Bipolar 2 disorder #Anxiety #PTSD - continue home buspirone - continue home hydroxyzine - continue home prazosin - continue home oxcarbazepine DVT ppx: Deferred chemical ppx in the setting of recurrent nose bleeds and marked thrombocytopenia <50, SCDs ordered Total Time Total Time Spent Total Time Spent (In Minutes): See attending attestation Discharge Plan Discharge Items Patient Disposition: Transfer Acute Care Hospital Reason For Visit: acute diarrheal illness Discharge Diagnosis: sepsis, neutropenic fever Activity: Per Instructions section Non-emergency contact: Primary Care Provider and Oncologist Call non-emergency contact if: your pain is worsening Follow-up/Referrals: Eric HALE [Primary Care Provider] - Diet: Regular Addtl Attending Provider Instructions: Pt is a 63 yo male with a significant past medical history of 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 #Acute diarrheal illness #Neutropenic fever #c dif colitis Patient acutely ill with severe sepsis - tachycardia, fever, hypotension, leukopenia. PICC line in place. CTAP nonspecific colitis. Work up significant for c. dif. UCx pending. BCx 2/ gram positive cocci. Biofire positive for staph epidermidis. On cefepime, flagyl, oral vanc, and IV vanc. Upon discussion with Dr. Juárez (oncology) patient would benefit from transfer to [facility] tertiary care center as he may be having progression of leukemia/unknown source of infection and he does receive care at [facility]. Discussed case with Dr. Perera who is the accepting physician. Plan for transfer for first available bed and BLS transport. #Pancytopenia #Hx AML on chemotherapy Holding home venetoclax in the setting of acute illness. From Dr. 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 He had adverse grayscale and 22 AML with multiple pathological mutations including ASXL1, U2AF1, STAG2, PHF6, RUNX1, cytogenetics were normal. At that time bone marrow biopsy had 60% blasts. He received induction therapy with azacitidine and venetoclax on 06/23/2023. Subsequently a post induction bone marrow biopsy showed MRD positive CR. He was treated with consolidation azacitidine plus venetoclax, the overall plan was to consolidate him with an allogenic stem cell transplant however since he is an inmate at [facility] in [place] he could not undergo consolidative stem cell transplant. I evaluated him in the clinic recently to continue treatment with Vidaza plus venetoclax however before he could start the next cycle of Vidaza plus venetoclax he was admitted in the hospital again." #KRISHAN - baseline Cr appears to be 0.8, presents with Cr 2.44 - most likely pre-renal in the setting of acute copious diarrheal illness with dehydration on admission - continue IVF, diet placed and encouraged po intake in addition to fluids #Hypokalemia - in setting of poor po intake x1 week with copious diarrheal illness and dehydration - K 2.8 on admission - IV repletion running, to recheck level tonight 8 pm #Bipolar 2 disorder #Anxiety #PTSD - continue home buspirone - continue home hydroxyzine - continue home prazosin - continue home oxcarbazepine DVT ppx: Deferred chemical ppx today in the setting of recurrent nose bleeds and marked thrombocytopenia <50, SCDs ordered Pending Studies at Discharge: Yes Stand-Alone Forms: My [facility] Skilled Items Patient informed of condition?: Yes DNR: No Discharge Level of Care: Other Communicable Disease: Yes (c dif) Discharge Prognosis: Stable Lines: Peripheral IV and PICC Urinary Catheter: No Medications and DC Order Prescriptions: Continued prazosin 1 mg Capsule 3 mg PO HS oxcarbazepine 300 mg Tablet 300 mg PO BID buspirone 10 mg Tablet 20 mg PO BID allopurinol 300 mg Tablet 300 mg PO DAILY ferrous sulfate 324 mg (65 mg iron) Tablet,Delayed Release (Dr/Ec) 324 mg PO DAILY oxcarbazepine 150 mg Tablet Extended Release 24 Hr 150 mg PO BID Rx Instructions: must be taken on empty stomach; no food at least 2 hrs before or 1 hr after dose posaconazole 100 mg Tablet,Delayed Release (Dr/Ec) 300 mg PO .DAILY AT NOON Rx Instructions: 3 tablet dose ascorbic acid (vitamin C) [Vitamin C] 500 mg Tablet 500 mg PO DAILY cyanocobalamin (vitamin B-12) [Vitamin B-12] 1,000 mcg Tablet 1,000 mcg PO DAILY Venclexta 10 mg Tablet 20 mg PO DAILY Rx Instructions: take 20 mg with 50 mg = 70 mg total dose acyclovir 400 mg Tablet 400 mg PO BID Venclexta 50 mg Tablet 50 mg PO DAILY hydroxyzine pamoate 50 mg Capsule 100 mg PO HS potassium chloride 20 mEq Tablet Extended Release 20 meq PO DAILY Nephron FA 66 mg iron- 1,000 mcg Tablet 1 tab PO QPM bismuth subsalicylate 262 mg/15 mL Suspension 262 mg PO TID PRN (Reason: DIRECTED) Discharge Orders: Discharge Order (Routine); Ordered 10/16/23 Ordered By: Neetu Tabares Admission Data Admit Date/Time: 10/14/23 14:10 Attending Provider: Georgi Ugalde Admit Provider: Sandy Schmidt Primary Care Provider: Eric HALE Other Providers: Eric Greenwood; Roslyn Easton Supervising Physician Co-Signing Physician Notes Attending attestation Pt seen and examined in concert with Dr. Tabares. In agreement with the documented findings as noted in the resident documentation with any exceptions or additions as noted here. Ongoing diarrhea, abdominal discomfort and fatigue without significant improvement on current abx regimen. On examination, S1/S2 nl RRR no MCG. CTAB. Abd nondistended, diffusely mildly TTP C. diff colitis/diarrhea - tolerating PO vancomycin, metronidazole therapy in the setting of pancytopenic patient. Contact precautions. +ve blood cultures pending speciation - will empirically treat w/ IV vancomycin and follow up wound cultures Panycytopenia w/o h/o AML - heme/onc consult - agree w/ heme/onc recommendation for transfer to tertiary facility for further evaluation and management at this time Else see resident documentation as noted. Total attending physician time spent with this patient's care on the day of discharge: 40 minutes.
[2023-10-16] MEDS ORDERED: CEFEPIME 2,000 MG in SYRINGE 0 ML IV SCH (12:00)
[2023-10-16] MEDS ORDERED: VANCOMYCIN HCL 1,000 MG in SODIUM CHLORIDE 0.9% 250 ML IV SCH (21:00)
--- NOTE | 2023-10-17 06:39 | Coding Query ---
CODING QUERY To promote full compliance with coding requirements relating to patient care, provider participation is requested in all cases of electrical control assembler uncertainty. Please assist us with the question(s) below: Coding Question(s): Pt with AML admitted with C.Diff enteritis & Sepsis. Progress notes/DS document Pancytopenia & Hx AML on CT. Please document, if known or suspected, the etiology of the pancytopenia. Thanks for your help! Toro Larkin [employer] [facility] Physician's Response(s): Suspected only. Concerning enough to transfer. Principal Diagnosis: "that condition established after study, to be chiefly responsible for occasioning the admission of the patient to the hospital for care." Co-Existing Principal Diagnosis: "when two or more diagnoses equally meet the criteria for principal diagnosis as determined by the circumstances of admission, diagnostic work up, and/or therapy provided, and the Alphabetic Index, Tabular List, or another coding guideline does not provide sequencing direction, any one of the diagnoses may be sequenced first." "When the physician has documented what appears to be a current diagnosis in the body of the record, but has not included the diagnosis in the final diagnostic statement, the physician should be asked whether the diagnosis should be added." (Source Coding Clinic 2 QTR90. p3-4) VINEET
== END 2023-10-16 11:16 | disposition short-term general hospital (02) | DRG 872 ==
LOC: ED 11:36 → 2S 14:10 → SUATTDRO 14:10 → 2S 15:00

== ENCOUNTER 2024-12-23 17:58 | Inpatient (IN) ==
--- NOTE | 2024-12-23 18:20 | Emergency Department Note ---
Impression & Plan Pancytopenia, Myeloblastic leukemia ED Provider Note NAME: BEV [id number] DELEON AGE: 64 SEX: M : 1960 ARRIVES VIA: Walk-In INFORMANT: Patient, ED PROVIDER(S): Dieter Oro MD CHIEF COMPLAINT: Abnormal blood work, outpatient referral MEDICAL DECISION MAKING: Patient presents with the above did have abnormal low platelets as well as low hemoglobin. IV was established and blood work was obtained. I did speak with the on-call hematology oncologist Dr. Easton. She did recommend the patient receive blood and platelets. He does not require acute transfer at this time. Patient was consented and 2 units PRBCs and 1 jumbo pack of platelets were ordered. I did speak with the on-call hospitalist Dr. Stewart and the patient was admitted to the medicine service. Critical Care: I have personally spent 39 minutes of critical care time in direct management of this patient. This includes bedside care, interpretation of diagnostic studies, and testing, discussion with consultants, patient, and family members, and other require inpatient management activities. This 39 minutes is in excess of all separately billable procedures. Discussion w/ other healthcare providers: None Prior /Outside records reviewed: none Differential diagnosis: Infection, dehydration, metabolic abnormality, hypo/hyperglycemia, electrolyte imbalance, anemia, UTI, pneumonia, thyroid dysfunction among others were considered. Diagnostics, as interpreted by me: ECG: Normal sinus rhythm, rate of 83, normal intervals, normal axis no ST elevations or TWI. Cardiac monitoring: An order was placed for continuous cardiac monitoring. The monitor shows a rate of 85 with sinus rhythm. Patient was placed on pulse oximetry Medical decision rules: none Imaging studies: None HPI: Patient presents due to concern for abnormal blood work. The patient reports he does have a known history of myelo blastic leukemia not receiving treatment for the last 10 months. Patient is currently incarcerated at [facility]. Patient reportedly had some blood work done as he noticed some easy bruising to his left flank that occurred within the last several days. He was noted to have a low hemoglobin less than 7 as well as platelets of 4. Patient denies any epistaxis or gingival bleeding. No falls or trauma. Patient denies any chest pains or shortness of breath no nausea vomiting or diarrhea. Patient states he is compliant with his Matter medications. He does have a port. PAST MEDICAL HISTORY: See Below PAST SURGICAL HISTORY: See Below SOCIAL HISTORY: See Below HOME MEDICATIONS: See Below ALLERGIES: See Below VITALS: See Below PHYSICAL EXAMINATION: GENERAL: NAD, non-toxic. EYE EXAM: Normal conjunctiva. PERRL, no anisocoria and EOM's grossly intact w/o pain. OROPHARYNX: Moist mucus membranes, grossly normal dentition. NECK: Trachea midline, no stridor. LUNGS: Clear to auscultation. Normal chest wall mechanics. HEART: NSR, no MRG. ABDOMEN: Abdomen soft, non-tender, no masses, no rebound or guarding. BACK: No CVA TTP. SKIN: Bruise noted to the left abdomen approximately 3 x 5 cm. No TTP. UPPER EXTREMITIES: Upper extremities are grossly normal. LOWER EXTREMITIES: Grossly normal, no edema. NEURO EXAM: Awake and alert, follows commands, no obvious facial asymmetry, normal speech, moves all 4 extremities. Past Med/Surg History Problem List (Updated 12/24/24 @ 00:52 by Dieter Oro MD) Myeloblastic leukemia (Acute) Pancytopenia (Acute) C. difficile colitis Severe sepsis PTSD (post-traumatic stress disorder) Anxiety Bipolar 2 disorder Acute diarrhea Neutropenic fever (Acute) Acute hypokalemia (Acute) KRISHAN (acute kidney injury) (Acute) Medical History AML (acute myeloblastic leukemia) Surgical History History of hernia repair Social History Smoking Status: Never smoker Tobacco Type: E-cigarettes / Vaping Second Hand Exposure: No; Do You Dip or Chew Tobacco: No; Hx Alcohol Use: No Hx Substance Use: No Preferred Language: Azeri Communication Ability: Effective [employer] Required: No Beliefs That Will Affect Care: Cultural Current Living Situation: Other Current Living Situation Comment: Eric Feels Safe at Home: Yes Assistive Devices: None Allergies Allergies Allergy/AdvReac Type Severity Reaction Status Date / Time No Known Allergies Allergy Verified 12/23/24 19:28 Home Meds Home Medications Medication Instructions Recorded Confirmed oxcarbazepine 150 mg 150 mg PO BID 07/06/23 12/23/24 tablet,extended release 24 hr oxcarbazepine 300 mg tablet 300 mg PO BID 07/06/23 12/23/24 hydroxyzine pamoate 50 mg capsule 100 mg PO HS 10/14/23 12/23/24 cyanocobalamin (vitamin B-12) 500 500 mcg PO DAILY 12/23/24 12/23/24 mcg tablet (Vitamin B-12) doxepin 100 mg capsule 100 mg PO HS 12/23/24 12/23/24 hydroxyzine pamoate 25 mg capsule 25 mg PO DAILY 12/23/24 12/23/24 ketoconazole 2 % topical cream 1 applic topical BID 12/23/24 12/23/24 multivitamin 1 tab PO DAILY 12/23/24 12/23/24 prazosin 2 mg capsule 4 mg PO HS 12/23/24 12/23/24 Results & Data (ED) Vital Signs Vital Signs - 24 hr 12/23/24 18:07 12/23/24 18:42 12/23/24 18:43 Temperature 36.5 C Temperature Source Temporal Artery Scan Pulse Rate 84 83 84 Pulse Rhythm Regular Respiratory Rate 18 14 Respiratory Effort / Characteristics Non-Labored Spontaneous Respiratory Depth Normal Blood Pressure 123/67 Blood Pressure Mean 85 Blood Pressure Position Sitting Pulse Oximetry 97 98 Oxygen Delivery Method Room Air Room Air Sepsis Recent Fever Within 48 Hours No Sepsis New/Unexplained Change in Mental Status No Sepsis Action Taken by Nursing No Action Required 12/23/24 18:44 12/23/24 20:10 12/23/24 20:27 Temperature 36.8 C 36.7 C Temperature Source Oral Oral Pulse Rate 73 68 67 Pulse Rhythm Respiratory Rate 14 18 18 Respiratory Effort / Characteristics Respiratory Depth Blood Pressure 133/66 118/69 119/74 Blood Pressure Mean 88 85 89 Blood Pressure Position Pulse Oximetry 97 98 97 Oxygen Delivery Method Room Air Sepsis Recent Fever Within 48 Hours Sepsis New/Unexplained Change in Mental Status Sepsis Action Taken by Nursing 12/23/24 20:40 12/23/24 20:42 12/23/24 20:56 Temperature 36.7 C 36.7 C 36.7 C Temperature Source Oral Oral Oral Pulse Rate 65 67 62 Pulse Rhythm Respiratory Rate 18 18 Respiratory Effort / Characteristics Respiratory Depth Blood Pressure 128/75 126/75 120/53 L Blood Pressure Mean 92 92 75 Blood Pressure Position Pulse Oximetry 98 98 99 Oxygen Delivery Method Sepsis Recent Fever Within 48 Hours Sepsis New/Unexplained Change in Mental Status Sepsis Action Taken by Nursing 12/23/24 21:11 Temperature 36.6 C Temperature Source Oral Pulse Rate 74 Pulse Rhythm Respiratory Rate 18 Respiratory Effort / Characteristics Respiratory Depth Blood Pressure 130/73 Blood Pressure Mean 92 Blood Pressure Position Pulse Oximetry 99 Oxygen Delivery Method Sepsis Recent Fever Within 48 Hours Sepsis New/Unexplained Change in Mental Status Sepsis Action Taken by Care Home Medications Current Medication List: was personally reviewed by me Laboratory Data Attestation: I reviewed the patient's lab results. 12/23/24 18:38 12/23/24 18:38 Lab Results 12/23/24 Range/Units 18:38 WBC 0.89 L* (4.8-10.8) K/ul RBC 2.32 L (4.70-6.10) M/uL Hgb 5.7 L* (14.0-18.0) g/dl Hct 17.9 L* (42.0-52.0) % MCV 77.2 L (80.0-100.0) fL MCH 24.6 L (25.0-34.0) pg MCHC 31.8 L (32.0-36.0) g/dL RDW Std Deviation 70.7 H (36.4-46.3) fL RDW Coeff of Dominic 26.5 H (11.5-14.5) % Plt Count 3 L* (130-400) K/uL Neutrophils % (Manual) 41 % Lymphocytes % (Manual) 50 % Monocytes % (Manual) 2 % Eosinophils % (Manual) 1 % Basophils % (Manual) 2 % Blast Cells % (Manual) 4 % Neutrophils # (Manual) 0.36 L (1.40-6.50) K/uL Total Absolute Neuts 0.36 L* (1.4-6.5) K/uL Lymphocytes # (Manual) 0.45 L (1.2-3.4) K/uL Total Abs Lymphocytes 0.45 L (1.2-3.4) K/uL Monocytes # (Manual) 0.02 L (0.11-0.59) K/uL Eosinophils # (Manual) 0.01 (0-0.50) K/uL Basophils # (Manual) 0.02 (0-0.2) K/uL Blast Cells # (Man) 0.04 H (0-0) K/uL Platelet Estimate Signific. Decreased L (Normal) Polychromasia 1+ Anisocytosis Present Acanthocytes (Spur) 2+ PT 10.2 (9.0-12.0) Seconds INR 0.9 (0.9-1.1) APTT 24 (21-31) Seconds PTT Ratio 0.9 Sodium 138 (136-145) mmol/L Potassium 4.3 (3.5-5.1) mmol/L Chloride 106 (98-107) mmol/L Carbon Dioxide 27 (21-32) mmol/L Anion Gap 5 (3-11) BUN 23 (6-23) mg/dl Creatinine 1.19 (0.6-1.4) mg/dl Est Cr Clr Drug Dosing 47.8 ml/min eGFR 67.79 BUN/Creatinine Ratio 19.3 (10-20) Glucose 103 H (70-99(Fasting)) mg/dl Calcium 8.5 L (8.6-10.3) mg/dl Total Bilirubin 0.4 (0.2-1.0) mg/dl AST 15 (13-39) U/L ALT 8 (7-52) U/L Alkaline Phosphatase 94 (34-104) U/L Total Protein 6.6 (6.0-8.3) gm/dl Albumin 4.2 (3.4-5.0) gm/dl Globulin 2.4 L (2.5-4.0) gm/dl Albumin/Globulin Ratio 1.8 (0.9-2) Blood Type A Positive Antibody Screen NEGATIVE Crossmatch See Detail Discharge Plan Visit Data Chief Complaint: Abnormal Labs/Diagnostic Testing Stated Complaint: ABN LAB RESULTS ED Provider: Dieter Oro Discharge Problem: Pancytopenia, Myeloblastic leukemia Patient Disposition: Admitted As Inpatient Condition: Good Discharge Instructions Interventions: ED Discharge Assessment Last Done: 12/23/24 22:21
[2024-12-23 18:57] LABS: Hematocrit (blood only) 17.9 % (42.0-52.0); Hemoglobin 5.7 g/dl (14.0-18.0); Mean Corpuscular Hemoglobin 24.6 pg (25.0-34.0); Mean Corpuscular Volume 77.2 fL (80.0-100.0); Platelet Count 3 K/uL (130-400); RDW Standard Deviation 70.7 fL (36.4-46.3); Red Blood Count 2.32 M/uL (4.70-6.10); White Blood Count 0.89 K/ul (4.8-10.8)
[2024-12-23 19:10] LABS: Alanine Aminotransferase 8.0 U/L (7-52); Albumin Globulin Ratio 1.8 (0.9-2); Albumin Level 4.2 gm/dl (3.4-5.0); Alkaline Phosphatase 94.0 U/L (34-104); Anion Gap 5.0 (3-11); Bilirubin,Total 0.4 mg/dl (0.2-1.0); Blood Urea Nitrogen 23.0 mg/dl (6-23); Calcium 8.5 mg/dl (8.6-10.3); Carbon Dioxide 27.0 mmol/L (21-32); Chloride 106.0 mmol/L (98-107); Creatinine Clr Calc Pharmacy 47.8 ml/min; Globulin 2.4 gm/dl (2.5-4.0); Glucose 103.0 mg/dl (70-99(Fasting)); Potassium 4.3 mmol/L (3.5-5.1); Sodium 138.0 mmol/L (136-145); Total Protein 6.6 gm/dl (6.0-8.3)
[2024-12-23] MEDS ORDERED: SODIUM CHLORIDE 0.9% 100 ML IV PRN (19:20)
[2024-12-23 19:42] LABS: INR 0.9 (0.9-1.1); Partial Thromboplastin Time 24 Seconds (21-31); Prothrombin Time 10.2 Seconds (9.0-12.0)
[2024-12-23 20:15] LABS: ALC (manual) 0.45 K/uL (1.2-3.4); ANC (manual) 0.36 K/uL (1.4-6.5); Acanthocytes 2+; Anisocytosis Present; Blast # (manual) 0.04 K/uL (0-0); Polychromasia 1+
--- NOTE | 2024-12-23 21:34 | History & Physical Report ---
Date of Service December 23, 2024 Assessment & Plan (1) AML (acute myeloblastic leukemia): (2) Pancytopenia: (3) Bipolar 2 disorder: (4) Anxiety: (5) PTSD (post-traumatic stress disorder): Plan Bello Vegas is a 64 y/o M with a past medical hx of AML previously on chemot herapy approximately 1 year ago, chronic myeloproliferative disease, pancytopenia, bipolar 2 disorder, alpha thalassemia, and HLD admitted due to Hgb: 5.7 and plt: 3 without evidence of active bleed, fevers, or symptomatic anemia other than mild difficulty ambulating and SOB. Patient is amenable to admit for transfusion and hematology evaluation and treatment. AML/Pancytopenia - Patient's Hgb 5.7 and plt: 3,000 on ED presentation, given 2 units PRBCs /1 unit platelets with NSS - Patient afebrile, VSSS, with no obvious active bleed. Hemoccult stools ordered - EKG: wnl, continue CCM on med-surg w/tele - Neutropenic isolation precautions - Hematology consulted, appreciate recs - Transfuse if Hgb <7 or plt <10,000 - BMP/CBC QAM - determine if additional PRBCs unit warranted vs additional andria dies to r/o bleeding if Hgb does not stabilize Chronic problems: Bipolar 2 disorder: Continue oxcarbazepine PTSD/Anxiety: Continue Prazosin/hydroxyzine FEN/GI: Consider LR fluids supplementation as needed, regular diet DVT prophylaxis: SCDs, defer chemoprophylaxis due to severe anemia and thrombocytopenia History of Present Illness Chief Complaint: Pancytopenia Primary Care Provider: [facility] Bello Vegas is a 64 y/o M with a past medical hx of AML previously on chemotherapy approximately 1 year ago, chronic myeloproliferative disease, pancytopenia, bipolar 2 disorder, alpha thalassemia, and HLD arriving to [facility] ED from [facility] after a blood draw was completed showing a hgb of 6.4. Today patient reports that he generally feels well and does not feel weak. Patient denies chest pain, palpitations, cough, wheeze, abdominal pain, nausea, vomiting, headache, fevers, chills, and acute bleeding. Patient denies any recent illnesses or feeling sick. Patient does report that over the past 3 weeks he has felt more SOB, and also reports that while walking the yard he has felt that his legs have been very heavy and sluggish making it difficult to walk and ambulate as he normally does. Patient notes that during this time period he also has felt dizzy when standing up quickly, and denies feeling feint or like he may lose consciousness but does endorse that he typically would take up to a minute of standing still for dizziness to resolve. Patient does report that he was following with [facility] hematology regularly and believes his last appointment was approximately 2 months ago. ED course: 2 units PRBCs + 1 unit platelets, administered with NSS drip CBC: WBC: 0.89, RBCs: 2.38, Hgb: 5.7, MCV: 77.2, Plt: 3, neutrophils: 0.36, Blasts: 0.04 Blood smear: pending Coagulation studies: wnl BMP: largely wnl limits with very mild hyperglycemia and hypocalcemia Allergies Allergy/AdvReac Type Severity Reaction Status Date / Time No Known Allergies Allergy Verified 12/23/24 19:28 Home Medications Medication Instructions Recorded Confirmed Type oxcarbazepine 150 mg 150 mg PO BID 07/06/23 12/23/24 History tablet,extended release 24 hr oxcarbazepine 300 mg tablet 300 mg PO BID 07/06/23 12/23/24 History hydroxyzine pamoate 50 mg capsule 100 mg PO HS 10/14/23 12/23/24 History cyanocobalamin (vitamin B-12) 500 500 mcg PO DAILY 12/23/24 12/23/24 History mcg tablet (Vitamin B-12) doxepin 100 mg capsule 100 mg PO HS 12/23/24 12/23/24 History hydroxyzine pamoate 25 mg capsule 25 mg PO DAILY 12/23/24 12/23/24 History ketoconazole 2 % topical cream 1 applic topical BID 12/23/24 12/23/24 History multivitamin 1 tab PO DAILY 12/23/24 12/23/24 History prazosin 2 mg capsule 4 mg PO HS 12/23/24 12/23/24 History Past Med/Surg History Problem List Myeloblastic leukemia (Acute) Pancytopenia (Acute) C. difficile colitis Severe sepsis PTSD (post-traumatic stress disorder) Anxiety Bipolar 2 disorder Acute diarrhea Neutropenic fever (Acute) Acute hypokalemia (Acute) KRISHAN (acute kidney injury) (Acute) Medical History AML (acute myeloblastic leukemia) Surgical History History of hernia repair Social History Smoking Status: Former smoker Tobacco Type: E-cigarettes / Vaping Smoking End Date: 10 months ago; Second Hand Exposure: Yes; Do You Dip or Chew Tobacco: No; Hx Alcohol Use: No Hx Substance Use: No Preferred Language: Guatemalan Communication Ability: Effective Clinical Data Analyst Required: No Beliefs That Will Affect Care: None Current Living Situation: Other Current Living Situation Comment: inmate Other Information That Helps Us Care for You: No Feels Safe at Home: Yes Safety Concerns: Feels Safe At This Time Assistive Devices: Glasses Review of Systems Review of Systems: All systems reviewed & are unremarkable except as noted in HPI & below Physical Exam Physical Exam: General: patient resting comfortably, NAD, non-toxic in appearance, answers questions appropriately. Skin: warm, dry, intact HEENT: NC/AT, anicteric sclera, conjunctiva without injection, moist mucus membranes. Heart: +S1/S2, regular, no m/r/g Lungs: equal air entry bilaterally, no rales/rhonchi/wheezes Abd: +BS, soft, NT/ND Ext: warm, no clubbing/cyanosis or edema Neuro: nonfocal, speech intact, no facial droop, moving all extremities. Results & Data Results & Data Vital Signs (Past 12 Hours) Vital Signs Temp Pulse Resp BP Pulse Ox O2 Del Method 12/23/24 21:11 36.6 C 74 18 130/73 99 12/23/24 20:56 36.7 C 62 120/53 L 99 12/23/24 20:42 36.7 C 67 18 126/75 98 12/23/24 20:40 36.7 C 65 18 128/75 98 12/23/24 20:27 36.7 C 67 18 119/74 97 12/23/24 20:10 36.8 C 68 18 118/69 98 12/23/24 18:44 73 14 133/66 97 Room Air 12/23/24 18:43 84 12/23/24 18:42 83 14 98 Room Air 12/23/24 18:07 36.5 C 84 18 123/67 97 Room Air Laboratory Results Laboratory Results WBC 0.89 K/ul (4.8-10.8) L* 12/23/24 18:38 RBC 2.32 M/uL (4.70-6.10) L 12/23/24 18:38 Hgb 5.7 g/dl (14.0-18.0) L* 12/23/24 18:38 Hct 17.9 % (42.0-52.0) L* 12/23/24 18:38 MCV 77.2 fL (80.0-100.0) L 12/23/24 18:38 MCH 24.6 pg (25.0-34.0) L 12/23/24 18:38 MCHC 31.8 g/dL (32.0-36.0) L 12/23/24 18:38 RDW Std Deviation 70.7 fL (36.4-46.3) H 12/23/24 18:38 RDW Coeff of Dominic 26.5 % (11.5-14.5) H 12/23/24 18:38 Plt Count 3 K/uL (130-400) L* 12/23/24 18:38 Neutrophils % (Manual) 41 % 12/23/24 18:38 Lymphocytes % (Manual) 50 % 12/23/24 18:38 Monocytes % (Manual) 2 % 12/23/24 18:38 Eosinophils % (Manual) 1 % 12/23/24 18:38 Basophils % (Manual) 2 % 12/23/24 18:38 Blast Cells % (Manual) 4 % 12/23/24 18:38 Neutrophils # (Manual) 0.36 K/uL (1.40-6.50) L 12/23/24 18:38 Total Absolute Neuts 0.36 K/uL (1.4-6.5) L* 12/23/24 18:38 Lymphocytes # (Manual) 0.45 K/uL (1.2-3.4) L 12/23/24 18:38 Total Abs Lymphocytes 0.45 K/uL (1.2-3.4) L 12/23/24 18:38 Monocytes # (Manual) 0.02 K/uL (0.11-0.59) L 12/23/24 18:38 Eosinophils # (Manual) 0.01 K/uL (0-0.50) 12/23/24 18:38 Basophils # (Manual) 0.02 K/uL (0-0.2) 12/23/24 18:38 Blast Cells # (Man) 0.04 K/uL (0-0) H 12/23/24 18:38 Platelet Estimate Signific. Decreased (Normal) L 12/23/24 18:38 Polychromasia 1+ 12/23/24 18:38 Anisocytosis Present 12/23/24 18:38 Acanthocytes (Spur) 2+ 12/23/24 18:38 PT 10.2 Seconds (9.0-12.0) 12/23/24 18:38 INR 0.9 (0.9-1.1) 12/23/24 18:38 APTT 24 Seconds (21-31) 12/23/24 18:38 PTT Ratio 0.9 12/23/24 18:38 Sodium 138 mmol/L (136-145) 12/23/24 18:38 Potassium 4.3 mmol/L (3.5-5.1) 12/23/24 18:38 Chloride 106 mmol/L (98-107) 12/23/24 18:38 Carbon Dioxide 27 mmol/L (21-32) 12/23/24 18:38 Anion Gap 5 (3-11) 12/23/24 18:38 BUN 23 mg/dl (6-23) 12/23/24 18:38 Creatinine 1.19 mg/dl (0.6-1.4) 12/23/24 18:38 Est Cr Clr Drug Dosing 47.8 ml/min 12/23/24 18:38 eGFR 67.79 12/23/24 18:38 BUN/Creatinine Ratio 19.3 (10-20) 12/23/24 18:38 Glucose 103 mg/dl (70-99(Fasting)) H 12/23/24 18:38 Calcium 8.5 mg/dl (8.6-10.3) L 12/23/24 18:38 Total Bilirubin 0.4 mg/dl (0.2-1.0) 12/23/24 18:38 AST 15 U/L (13-39) 12/23/24 18:38 ALT 8 U/L (7-52) 12/23/24 18:38 Alkaline Phosphatase 94 U/L (34-104) 12/23/24 18:38 Total Protein 6.6 gm/dl (6.0-8.3) 12/23/24 18:38 Albumin 4.2 gm/dl (3.4-5.0) 12/23/24 18:38 Globulin 2.4 gm/dl (2.5-4.0) L 12/23/24 18:38 Albumin/Globulin Ratio 1.8 (0.9-2) 12/23/24 18:38 Blood Type A Positive 12/23/24 18:38 Antibody Screen NEGATIVE 12/23/24 18:38 Crossmatch See Detail 12/23/24 18:38 Code Status & VTE Plan VTE Prophylaxis Plan VTE Prophylaxis will be ordered: Yes Reason for no VTE drug order: Treatment not tolerated Supervising Physician Co-Signing Physician Notes Patient seen and examined, chart reviewed, case discussed with Dr. Hubbard and I agree with the assessment and plan as above. Patient with AML presenting with pancytopenia - symptomatic anemia with MCKINNEY Patient was diagnosed with AML in 2023 - had a bone marrow biopsy that showed multiple pathological mutations and 60% blasts. He received induction therapy. Was planning for allogenic stem cell transplantation, however, patient was incarcerated at [facility] in the interim and could not undergo stem cell transplant. Patient presented as pancytopenic in October 2023 and was transferred to [facility]. Reports his last chemotherapy treatment was 10 months ago. Reports being told he was in remission. On exam he is resting comfortably, NAD Skin - no rash, no petechiae, no mucosal bleeding +S1/S2, regular, no m/r/g Lungs CTA Abd soft, NT/ND Ext warm, well perfused Labs and images reviewed Pancytopenic with WBC=0.89 with lymphopenia and neutropenia, blasts=0.04, microcytic/hypochronic anemia and thrombocytopenia with platelets = 3 Coags normal Electrolytes normal Assessment/Plan - concern for return of leukemia with pancytopenia? No active blood loss or mucosal bleeding. No fever or evidence of infection. -Transfuse 2u PRBCs -Transfuse 1u platelets -Repeat CBC in AM -Hematology consultation appreciated -Maintain neutropenic precautions -Remainder as above Resident Activity Tracking Resident Involvement: Resident Care Provided Care Provided: Adult Hospital Medicine
[2024-12-24] MEDS ORDERED: ONDANSETRON INJ 2 MG/ML 2 ML VIAL IV PRN
[2024-12-24] MEDS ORDERED: MELATONIN 3 MG TAB PO PRN
[2024-12-24 07:24] LABS: Anion Gap 3.0 (3-11); Blood Urea Nitrogen 16.0 mg/dl (6-23); Calcium 8.0 mg/dl (8.6-10.3); Carbon Dioxide 28.0 mmol/L (21-32); Chloride 108.0 mmol/L (98-107); Creatinine Clr Calc Pharmacy 59.2 ml/min; Glucose 90.0 mg/dl (70-99(Fasting)); Potassium 4.3 mmol/L (3.5-5.1); Sodium 139.0 mmol/L (136-145)
[2024-12-24 07:32] LABS: Hematocrit (blood only) 25.1 % (42.0-52.0); Hemoglobin 8.3 g/dl (14.0-18.0); Mean Corpuscular Hemoglobin 26.3 pg (25.0-34.0); Mean Corpuscular Volume 79.7 fL (80.0-100.0); Platelet Count 14 K/uL (130-400); RDW Standard Deviation 62.5 fL (36.4-46.3); Red Blood Count 3.15 M/uL (4.70-6.10); White Blood Count 0.72 K/ul (4.8-10.8)
[2024-12-24 07:46] LABS: ALC (manual) 0.33 K/uL (1.2-3.4); ANC (manual) 0.33 K/uL (1.4-6.5); Acanthocytes 1+; Anisocytosis Present; Blast # (manual) 0.02 K/uL (0-0); Hypochromasia Present; Polychromasia 1+
[2024-12-24] MEDS ORDERED: OXCARBAZEPINE 150 MG PO SCH (09:00)
[2024-12-24] MEDS: CYANOCOBALAMIN (B-12) 500 MCG TABLET PO SCH (10:43)
--- NOTE | 2024-12-24 12:28 | Discharge Summary ---
Discharge Summary Date of Service December 24, 2024 Principal Dx & Hospital Course #1 = Principal Diagnosis (1) AML (acute myeloblastic leukemia): (2) Pancytopenia: (3) Bipolar 2 disorder: (4) Anxiety: (5) PTSD (post-traumatic stress disorder): Plan Bello Vegas is a 64 year old male admitted to [facility] from December 23 - 2024 due to anemia and thrombocytopenia. He was treated with 2 units packed red blood cells and 1 unit platelets suspected secondary to AML. He reported feeling improved the following day. His care was discussed with your senior graduate advisor and recommended discharge at this time and follow up as an outpatient. Notes For Next Care Provider Make sure he has follow up with hematology as outpatient Medication Changes From Visit No changes Admission HPI Per Admitting Provider Bello Vegas is a 64 y/o M with a past medical hx of AML previously on chemotherapy approximately 1 year ago, chronic myeloproliferative disease, pancytopenia, bipolar 2 disorder, alpha thalassemia, and HLD arriving to [facility] ED from [facility] after a blood draw was completed showing a hgb of 6.4. Today patient reports that he generally feels well and does not feel weak. Patient denies chest pain, palpitations, cough, wheeze, abdominal pain, nausea, vomiting, headache, fevers, chills, and acute bleeding. Patient denies any recent illnesses or feeling sick. Patient does report that over the past 3 weeks he has felt more SOB, and also reports that while walking the yard he has felt that his legs have been very heavy and sluggish making it difficult to walk and ambulate as he normally does. Patient notes that during this time period he also has felt dizzy when standing up quickly, and denies feeling feint or like he may lose consciousness but does endorse that he typically would take up to a minute of standing still for dizziness to resolve. Patient does report that he was following with [facility] hematology regularly and believes his last appointment was approximately 2 months ago. ED course: 2 units PRBCs + 1 unit platelets, administered with NSS drip CBC: WBC: 0.89, RBCs: 2.38, Hgb: 5.7, MCV: 77.2, Plt: 3, neutrophils: 0.36, Blasts: 0.04 Blood smear: pending Coagulation studies: wnl BMP: largely wnl limits with very mild hyperglycemia and hypocalcemia Discharge Exam Constitutional WD/WN, vitals as above Respiratory normal respiratory effort, lungs clear to auscultation Cardiovascular RRR, no murmur, no edema Discharge Plan Discharge Items [facility] Reason For Visit: PANCYTOPENIA Discharge Diagnosis: Pancytopenia Condition on Discharge: Good Activity: Resume your previous activity Non-emergency contact: Specialist Call non-emergency contact if: you have any medication questions and your symptoms worsen Follow-up/Referrals: Eric HALE [Primary Care Provider] - Diet: Regular Addtl Attending Provider Instructions: You were admitted to [facility] from December 23 - 2024 due to low hemoglobin and platelet levels. You were treated with 2 units packed red blood cells and 1 unit platelets. You reported feeling improved the following day. Your care was discussed with your senior graduate advisor and recommended discharge at this time and follow up as an outpatient. No changes to your medications were made. Pending Studies at Discharge: No Stand-Alone Forms: My [facility] Skilled Items Patient informed of condition?: Yes Discharge Level of Care: Other Communicable Disease: No Discharge Prognosis: Stable Lines: None Urinary Catheter: No Medications and DC Order Prescriptions: Continued oxcarbazepine 300 mg Tablet 300 mg PO BID oxcarbazepine 150 mg Tablet Extended Release 24 Hr 150 mg PO BID hydroxyzine pamoate 50 mg Capsule 100 mg PO HS Rx Instructions: CRUSH doxepin 100 mg Capsule 100 mg PO HS Rx Instructions: CRUSH ketoconazole 2 % Cream 1 applic TOPICAL BID prazosin 2 mg Capsule 4 mg PO HS multivitamin Tablet 1 tab PO DAILY cyanocobalamin (vitamin B-12) [Vitamin B-12] 500 mcg Tablet 500 mcg PO DAILY hydroxyzine pamoate 25 mg Capsule 25 mg PO DAILY Discharge Orders: Discharge Order (Routine); Ordered 12/24/24 Ordered By: Hayden Mcknight Admission Data Admit Date/Time: 12/23/24 21:33 Attending Provider: Hayden Mcknight Admit Provider: Roverto Hubbard Primary Care Provider: Eric HALE Other Providers: Tawnya Stewart Aderonke Other Interventions: Discharge Summary Assessment (RN) Last Done: 12/24/24 15:10 Hospital Stay Data Consultations 12/23/24 19:46 ED Decision to Admit Stat 12/24/24 00:00 Consult Hematology Routine Pending Results Patient Have Any Pending Studies at Discharge: No Discharge Instructions Given to Patient (Per Discharging Provider) You were admitted to [facility] from December 23 - 2024 due to low hemoglobin and platelet levels. You were treated with 2 units packed red blood cells and 1 unit platelets. You reported feeling improved the following day. Your care was discussed with your senior graduate advisor and recommended discharge at this time and follow up as an outpatient. No changes to your medications were made. Total Time Total Time Spent Total Time Spent (In Minutes): 40 Coding Level of Care Code 70479 INP/OBS DISCH >30 MIN Diagnoses AML (acute myeloblastic leukemia) C92.00 Pancytopenia D61.818 Bipolar 2 disorder F31.81 Anxiety F41.9 PTSD (post-traumatic stress disorder) F43.10
[2024-12-24 12:34] VITALS: BP 120/68; RESP 18; TEMP 98.1; O2SAT 98
[2024-12-24 15:10] VITALS: PULSE 73
[2024-12-24] MEDS: HEPARIN 100 UNIT/ML 5ML FLUSH FLUSH STA (15:40)
[2024-12-24] MEDS ORDERED: DOXEPIN HCL 50 MG CAPSULE PO SCH (21:00)
[2024-12-24] MEDS ORDERED: PRAZOSIN HCL 1 MG CAP PO SCH (21:00)
--- NOTE | 2024-12-27 08:03 | Electrocardiogram Report ---
Test Reason : Blood Pressure : */* mmHG Vent. Rate : 83 BPM Atrial Rate : 83 BPM P-R Int : 152 ms QRS Dur : 78 ms QT Int : 396 ms P-R-T Axes : 57 25 44 degrees QTcB Int : 465 ms Normal sinus rhythm Normal ECG When compared with ECG of 14-Oct-2023 11:45, ST no longer depressed in Anterolateral leads Nonspecific T wave abnormality no longer evident in Inferior leads Nonspecific T wave abnormality no longer evident in Lateral leads Confirmed by Link Benito ([id number]) on 12/27/2024 8:02:59 AM Referred By: [facility] Confirmed By: Link Benito
== END 2024-12-24 16:37 | DRG 809 ==
LOC: ED 17:58 → SUATTDRO 21:33 → 2W 21:33

== ENCOUNTER 2025-01-07 20:31 | Inpatient (IN) ==
[2025-01-07 21:46] LABS: Anion Gap 6.0 (3-11); Blood Urea Nitrogen 20.0 mg/dl (6-23); Carbon Dioxide 25.0 mmol/L (21-32); Chloride 108.0 mmol/L (98-107); Potassium 3.8 mmol/L (3.5-5.1); Sodium 139.0 mmol/L (136-145)
[2025-01-07 21:47] LABS: Alanine Aminotransferase 10.0 U/L (7-52); Albumin Globulin Ratio 1.6 (0.9-2); Albumin Level 4.0 gm/dl (3.4-5.0); Alkaline Phosphatase 89.0 U/L (34-104); Bilirubin,Total 0.4 mg/dl (0.2-1.0); Calcium 8.4 mg/dl (8.6-10.3); Creatinine Clr Calc Pharmacy 54.2 ml/min; Globulin 2.5 gm/dl (2.5-4.0); Glucose 121.0 mg/dl (70-99(Fasting)); Total Protein 6.5 gm/dl (6.0-8.3)
[2025-01-07 21:48] LABS: Hematocrit (blood only) 20.4 % (42.0-52.0); Hemoglobin 6.9 g/dl (14.0-18.0); Mean Corpuscular Hemoglobin 27.4 pg (25.0-34.0); Mean Corpuscular Volume 81.0 fL (80.0-100.0); Platelet Count 2 K/uL (130-400); RDW Standard Deviation 65.1 fL (36.4-46.3); Red Blood Count 2.52 M/uL (4.70-6.10); White Blood Count 0.69 K/ul (4.8-10.8)
[2025-01-07] MEDS ORDERED: SODIUM CHLORIDE 0.9% 100 ML IV PRN (21:59)
[2025-01-07] MEDS: PANTOprazole 40 MG/10 ML SYR IV ONE (22:08)
[2025-01-07] MEDS: ONDANSETRON INJ 2 MG/ML 2 ML VIAL IV STA (22:08)
[2025-01-07] MEDS: FAMOTIDINE 20MG IV PUSH 20 MG/5 ML SYR IV STA (22:09)
--- NOTE | 2025-01-07 23:31 | History & Physical Report ---
Date of Service January 07, 2025 Assessment & Plan (1) Pancytopenia: (2) Anxiety: (3) Bipolar 2 disorder: Plan 64-year-old male presenting with pancytopenia. Likely diagnosis of AML. Uncertain if he has had this worked up to any degree after being discharged. Patient is a poor historian. Returning today with pancytopenia. No active bleed #Pancytopenia Admit to medical telemetry Maintain isolation precautions Transfuse 1 unit platelets and 1 unit PRBCs Repeat CBC in the morning Oncology consultation appreciated #Anxiety/bipolar 2/mental health Continue doxepin Continue hydroxyzine Continue Trileptal Continue prazosin History of Present Illness Primary Care Provider: GEOFFREY Reyes 64-year-old male with history of AML previous on chemotherapy, chronic myeloproliferative disease, pancytopenia, bipolar 2 disorder and alpha thalassemia presenting again from present with pancytopenia. Patient was recently admitted from 12/23 - 12/24/2024 after presenting with the same. At that time he was transfused with 2 units PRBCs and 1 unit of platelets. He was discharged home with instruction to follow-up with oncology. Patient reports he has not yet seen oncology but he does have a port in the right chest - not sure who placed that. Patient went to the [facility] due to bruising on his arms, legs and back. Otherwise he denies fever, chills, chest pain, cough, shortness of breath Allergies Allergy/AdvReac Type Severity Reaction Status Date / Time No Known Allergies Allergy Verified 01/07/25 22:12 Home Medications Medication Instructions Recorded Confirmed Type oxcarbazepine 150 mg 150 mg PO BID 07/06/23 01/07/25 History tablet,extended release 24 hr oxcarbazepine 300 mg tablet 300 mg PO BID 07/06/23 01/07/25 History hydroxyzine pamoate 50 mg capsule 100 mg PO HS 10/14/23 01/07/25 History cyanocobalamin (vitamin B-12) 500 500 mcg PO DAILY 12/23/24 01/07/25 History mcg tablet (Vitamin B-12) doxepin 100 mg capsule 100 mg PO HS 12/23/24 01/07/25 History hydroxyzine pamoate 25 mg capsule 25 mg PO DAILY 12/23/24 01/07/25 History ketoconazole 2 % topical cream 1 applic topical BID 12/23/24 01/07/25 History multivitamin 1 tab PO DAILY 12/23/24 01/07/25 History prazosin 2 mg capsule 4 mg PO HS 12/23/24 01/07/25 History Past Med/Surg History Problem List Pancytopenia (Acute) Myeloblastic leukemia (Acute) Pancytopenia (Acute) C. difficile colitis Severe sepsis PTSD (post-traumatic stress disorder) Anxiety Bipolar 2 disorder Acute diarrhea Neutropenic fever (Acute) Acute hypokalemia (Acute) KRISHAN (acute kidney injury) (Acute) Medical History AML (acute myeloblastic leukemia) Surgical History History of hernia repair Social History Smoking Status: Former smoker Tobacco Type: E-cigarettes / Vaping Smoking End Date: 1 year ago; Second Hand Exposure: Yes; Do You Dip or Chew Tobacco: No; Hx Alcohol Use: No Hx Substance Use: No Preferred Language: Italian Communication Ability: Effective Ux Interaction Designer Required: No Beliefs That Will Affect Care: None Current Living Situation: Other Current Living Situation Comment: inmate Feels Safe at Home: Yes Assistive Devices: None Review of Systems Review of Systems: All systems reviewed & are unremarkable except as noted in HPI & below Physical Exam Physical Exam: General: patient ill in appearance, awake alert and oriented Skin: petechial rash present on bilateral lower extremities, mucosal purpura noted on the lateral tongue HEENT: NC/AT, PERRL, EOMI, anicteric sclera, conjunctiva without injection, external ear normal to inspection and nontender, nares patent, moist mucus membranes, dentition intact, no oropharyngeal lesions, neck supple, trachea midline, no LAD, no thyromegaly, no JVD Heart: +S1/S2, regular, no m/r/g Lungs: equal air entry bilaterally, no rales/rhonchi/wheezes Abd: +BS, soft, NT/ND, no masses/organomegaly/ascites Ext: warm, 2+ pulses in UE/LE bilaterally, no clubbing/cyanosis or edema Neuro: nonfocal, patient AA&O x 4, speech intact, no facial droop, moving all extremities on command with equal strength 5/5 Results & Data Results & Data Vital Signs (Past 12 Hours) Vital Signs Temp Pulse Resp BP Pulse Ox O2 Del Method 01/07/25 22:00 71 12 108/64 96 01/07/25 21:27 79 01/07/25 20:34 37 C 82 18 133/79 98 Room Air Laboratory Results Laboratory Results WBC 0.69 K/ul (4.8-10.8) L* 01/07/25 21:17 RBC 2.52 M/uL (4.70-6.10) L 01/07/25 21:17 Hgb 6.9 g/dl (14.0-18.0) L* 01/07/25 21:17 Hct 20.4 % (42.0-52.0) L* 01/07/25 21:17 MCV 81.0 fL (80.0-100.0) 01/07/25 21:17 MCH 27.4 pg (25.0-34.0) 01/07/25 21:17 MCHC 33.8 g/dL (32.0-36.0) 01/07/25 21:17 RDW Std Deviation 65.1 fL (36.4-46.3) H 01/07/25 21:17 RDW Coeff of Dominic 22.9 % (11.5-14.5) H 01/07/25 21:17 Plt Count 2 K/uL (130-400) L* 01/07/25 21:17 Immature Gran % (Auto) 0.0 % 01/07/25 21:17 Neut % (Auto) 45.0 % 01/07/25 21:17 Lymph % (Auto) 39.1 % 01/07/25 21:17 [place] % (Auto) 15.9 % 01/07/25 21:17 Eos % (Auto) 0.0 % 01/07/25 21:17 Baso % (Auto) 0.0 % 01/07/25 21:17 Neut # (Auto) 0.31 K/uL (1.40-6.50) L* 01/07/25 21:17 Lymph # (Auto) 0.27 K/uL (1.20-3.40) L 01/07/25 21:17 [place] # (Auto) 0.11 K/uL (0.11-0.59) 01/07/25 21:17 Eos # (Auto) 0.00 K/uL (0.00-0.50) 01/07/25 21:17 Baso # (Auto) 0.00 K/uL (0.00-0.20) 01/07/25 21:17 Immature Gran # (Auto) 0.00 K/uL (0.01-0.20) L 01/07/25 21:17 Sodium 139 mmol/L (136-145) 01/07/25 21:17 Potassium 3.8 mmol/L (3.5-5.1) 01/07/25 21:17 Chloride 108 mmol/L (98-107) H 01/07/25 21:17 Carbon Dioxide 25 mmol/L (21-32) 01/07/25 21:17 Anion Gap 6 (3-11) 01/07/25 21:17 BUN 20 mg/dl (6-23) 01/07/25 21:17 Creatinine 1.05 mg/dl (0.6-1.4) 01/07/25 21:17 Est Cr Clr Drug Dosing 54.2 ml/min 01/07/25 21:17 eGFR 78.77 01/07/25 21:17 BUN/Creatinine Ratio 19.0 (10-20) 01/07/25 21:17 Glucose 121 mg/dl (70-99(Fasting)) H 01/07/25 21:17 Calcium 8.4 mg/dl (8.6-10.3) L 01/07/25 21:17 Total Bilirubin 0.4 mg/dl (0.2-1.0) 01/07/25 21:17 AST 17 U/L (13-39) 01/07/25 21:17 ALT 10 U/L (7-52) 01/07/25 21:17 Alkaline Phosphatase 89 U/L (34-104) 01/07/25 21:17 Total Protein 6.5 gm/dl (6.0-8.3) 01/07/25 21:17 Albumin 4.0 gm/dl (3.4-5.0) 01/07/25 21:17 Globulin 2.5 gm/dl (2.5-4.0) 01/07/25 21:17 Albumin/Globulin Ratio 1.6 (0.9-2) 01/07/25 21:17 Blood Type A Positive 01/07/25 22:26 Antibody Screen NEGATIVE 01/07/25 22:26 Crossmatch See Detail 01/07/25 22:26 PG Care Time/CCT Total # of Minutes Spent Total Time Spent with Patient: Total time spent is greater than 50% in coordination of care (as documented) at patient's floor/unit and/or counseling patient: Coding Level of Care Code 97800 INT INP/OBS CARE 3/75MIN Diagnoses Pancytopenia D61.818 Anxiety F41.9 Bipolar 2 disorder F31.81
[2025-01-08] MEDS ORDERED: ONDANSETRON INJ 2 MG/ML 2 ML VIAL IV PRN ×2 (01:02)
[2025-01-08] MEDS ORDERED: ACETAMINOPHEN 325 MG TAB PO PRN (01:02)
--- NOTE | 2025-01-08 01:18 | Emergency Department Note ---
History of Present Illness General Chief complaint: Abnormal Labs/Diagnostic Testing Stated complaint: IRREGULAR BLOOD WORK Time Seen by Provider: 01/07/25 21:23 History of Present Illness This 64-year-old prisoner presents the ER for evaluation of nontraumatic purpura and petechiae with a history of leukemia who is received multiple blood transfusions in the past. Patient was seen by the shelter provider and sent in as his platelet count was low. Patient denies chest pain, dyspnea, black stool, hematemesis. Patient last received blood 2 weeks ago along with platelets. Patient thinks he might of talking to the political advisor/oncologist provider via telehealth at the shelter but is not sure. Home Medications Medication Instructions Recorded Confirmed Type oxcarbazepine 150 mg 150 mg PO BID 07/06/23 01/07/25 History tablet,extended release 24 hr oxcarbazepine 300 mg tablet 300 mg PO BID 07/06/23 01/07/25 History hydroxyzine pamoate 50 mg capsule 100 mg PO HS 10/14/23 01/07/25 History cyanocobalamin (vitamin B-12) 500 500 mcg PO DAILY 12/23/24 01/07/25 History mcg tablet (Vitamin B-12) doxepin 100 mg capsule 100 mg PO HS 12/23/24 01/07/25 History hydroxyzine pamoate 25 mg capsule 25 mg PO DAILY 12/23/24 01/07/25 History ketoconazole 2 % topical cream 1 applic topical BID 12/23/24 01/07/25 History multivitamin 1 tab PO DAILY 12/23/24 01/07/25 History prazosin 2 mg capsule 4 mg PO HS 12/23/24 01/07/25 History Allergies Allergy/AdvReac Type Severity Reaction Status Date / Time No Known Allergies Allergy Verified 01/07/25 22:12 Past Med/Surg History Problem List (Updated 01/08/25 @ 01:19 by Wendy Richey PA-C) Pancytopenia (Acute) Myeloblastic leukemia (Acute) Pancytopenia (Acute) C. difficile colitis Severe sepsis PTSD (post-traumatic stress disorder) Anxiety Bipolar 2 disorder Acute diarrhea Neutropenic fever (Acute) Acute hypokalemia (Acute) KRISHAN (acute kidney injury) (Acute) Medical History AML (acute myeloblastic leukemia) Surgical History History of hernia repair Social History Smoking Status: Former smoker Tobacco Type: E-cigarettes / Vaping Smoking End Date: 1 year ago; Second Hand Exposure: Yes; Do You Dip or Chew Tobacco: No; Hx Alcohol Use: No Hx Substance Use: No Preferred Language: Hungarian Communication Ability: Effective Visual Supervisor Required: No Beliefs That Will Affect Care: None Current Living Situation: Other Current Living Situation Comment: inmate Feels Safe at Home: Yes Assistive Devices: None Review of Systems A total of 10 systems reviewed and were otherwise negative Physical Exam Vital Signs Vital Signs - 24 hr 01/07/25 20:34 01/07/25 21:27 01/07/25 22:00 Temperature 37 C Temperature Source Oral Pulse Rate 82 79 71 Pulse Rate from SpO2 Sensor 71 Respiratory Rate 18 12 Respiratory Effort / Characteristics Non-Labored Spontaneous Respiratory Depth Normal Respiratory Pattern Regular Blood Pressure 133/79 108/64 Blood Pressure Mean 97 76 Pulse Oximetry 98 96 Oxygen Delivery Method Room Air Sepsis Recent Fever Within 48 Hours No Sepsis New/Unexplained Change in Mental Status No Sepsis Action Taken by Nursing No Action Required VITALS: Vitals are noted on the nurse's note and reviewed by myself. Vital signs stable. GENERAL: White male with correctional officers present, in no acute distress, nondiaphoretic, well-developed well-nourished. SKIN: Purple to the back, petechiae to the chest, capillary reflex less than 2 seconds. HEENT: Normocephalic. PERRLA. EOMI. Nares patent. Mucous membranes moist. Neck is supple without nuchal rigidity. HEART: Regular rate and rhythm LUNGS: Clear to auscultation bilaterally without wheezes, rales or rhonchi. No retractions or accessory muscle use. ABDOMEN: Positive bowel sounds x 4. Normal tympanic percussion. Soft, nontender, without masses or organomegaly. Hernandez sign negative. No guarding or rebound tenderness. no CVA tenderness MUSCULOSKELETAL: No gross musculoskeletal defects. NEURO: Patient was alert and oriented to person place and time. No focal neurological deficits. Course Administered Medications Discontinued Medications Pantoprazole Sodium (Protonix) 40 mg in 10 mls @ 5 mls/min IV NOW ONE Stop: 01/07/25 22:03 Last Admin: 01/07/25 22:08 Dose: 5 mls/min Documented By: FRANCISCO Famotidine (Pepcid 20mg Iv Push) 20 mg in 5 mls @ 2.5 mls/min IV NOW STA Stop: 01/07/25 22:03 Last Admin: 01/07/25 22:09 Dose: 2.5 mls/min Documented By: FRANCISCO Ondansetron HCl (Ondansetron Inj 2 Mg/Ml 2 Ml Vial) 4 mg IV NOW STA Stop: 01/07/25 22:03 Last Admin: 01/07/25 22:08 Dose: 4 mg Documented By: FRANCISCO Critical Care Time Critical Care Time: Yes Total Critical Care Time: 35 I have personally spent 35 minutes of critical care time in the direct management of this patient. This includes bedside care, interpretation of diagnostic studies, and testing, discussion with consultants, patient, and family members, and other required patient management activities. This 35 minutes is in excess of all separately billable procedures. Medical Decision Making Medical Records Attestation: I reviewed the patient's medical records. Home Medications Current Medication List: was personally reviewed by me Laboratory Data Attestation: I reviewed the patient's lab results. 01/07/25 21:17 01/07/25 21:17 Lab Results 01/07/25 01/07/25 Range/Units 21:17 22:26 WBC 0.69 L* (4.8-10.8) K/ul RBC 2.52 L (4.70-6.10) M/uL Hgb 6.9 L* (14.0-18.0) g/dl Hct 20.4 L* (42.0-52.0) % MCV 81.0 (80.0-100.0) fL MCH 27.4 (25.0-34.0) pg MCHC 33.8 (32.0-36.0) g/dL RDW Std Deviation 65.1 H (36.4-46.3) fL RDW Coeff of Dominic 22.9 H (11.5-14.5) % Plt Count 2 L* (130-400) K/uL Immature Gran % (Auto) 0.0 % Neut % (Auto) 45.0 % Lymph % (Auto) 39.1 % Louisa % (Auto) 15.9 % Eos % (Auto) 0.0 % Baso % (Auto) 0.0 % Neut # (Auto) 0.31 L* (1.40-6.50) K/uL Lymph # (Auto) 0.27 L (1.20-3.40) K/uL Louisa # (Auto) 0.11 (0.11-0.59) K/uL Eos # (Auto) 0.00 (0.00-0.50) K/uL Baso # (Auto) 0.00 (0.00-0.20) K/uL Immature Gran # (Auto) 0.00 L (0.01-0.20) K/uL Sodium 139 (136-145) mmol/L Potassium 3.8 (3.5-5.1) mmol/L Chloride 108 H (98-107) mmol/L Carbon Dioxide 25 (21-32) mmol/L Anion Gap 6 (3-11) BUN 20 (6-23) mg/dl Creatinine 1.05 (0.6-1.4) mg/dl Est Cr Clr Drug Dosing 54.2 ml/min eGFR 78.77 BUN/Creatinine Ratio 19.0 (10-20) Glucose 121 H (70-99(Fasting)) mg/dl Calcium 8.4 L (8.6-10.3) mg/dl Total Bilirubin 0.4 (0.2-1.0) mg/dl AST 17 (13-39) U/L ALT 10 (7-52) U/L Alkaline Phosphatase 89 (34-104) U/L Total Protein 6.5 (6.0-8.3) gm/dl Albumin 4.0 (3.4-5.0) gm/dl Globulin 2.5 (2.5-4.0) gm/dl Albumin/Globulin Ratio 1.6 (0.9-2) Blood Type A Positive Antibody Screen NEGATIVE Crossmatch See Detail MDM Narrative Prior records/ancillary studies reviewed and summarized above. Nursing notes reviewed. Additional history obtained from correctional officers. The patient's history was concerning for pancytopenia. Differential diagnosis: Etiologies such as metabolic, infection, hypo/hyperglycemia, electrolyte abnormalities, cardiac sources, intracerebral event, toxicologic, neurologic, as well as others were entertained. Physical examination: As above. ER treatment provided: IV Lock An order was placed for continuous cardiac monitoring. The monitor shows a rate of 60-100 with a sinus rhythm per my interpretation. Pepcid, Protonix was ordered. Patient was consented to blood and he was typed and crossmatched for 2 units and a unit of platelets. On reassessment the patient felt better. Diagnostics interpretation by me: The labs Independently Interpreted by myself revealed pancytopenia, type and screen was sent Consultation: A consultation was placed with the hospitalist. The case was discussed and diagnostics were reviewed. The patient was evaluated in the ER for further treatment. Exam and history seem consistent with pancytopenic who required blood and platelet transfusions. Patient did have purpura and petechiae. No active bleeding gums. He was given Protonix and Pepcid. He was typed and crossmatched. He was consented to blood. He was agreeable treatment plan of admission. This is recurrent for the patient. By the evaluation outlined above emergent etiologies such as infection, electrolyte abnormalities, cardiac sources, intracerebral event, toxologic, neurologic, abnormalities blood glucose, metabolic, as well as others were deemed relatively unlikely. The pt informed about the findings as listed above. All questions were answered and pleased with the treatment. The chart was completed utilizing [employer] Speech voice recognition software. Grammatical errors, random word insertions, pronoun errors, and incomplete sentences are an occassional consequence of this system due to software limitations, ambient noise, and hardware issues. Any formal questions or concerns about the content, text, or information contained within the body of this dictation should be directly addressed to the physician trading assistant for clarification. Impression & Plan Pancytopenia Discharge Plan Visit Data Chief Complaint: Abnormal Labs/Diagnostic Testing Stated Complaint: IRREGULAR BLOOD WORK ED Provider: Dianna Hernandez ED Midlevel Provider: Wendy Richey Discharge Problem: Pancytopenia Patient Disposition: Admitted As Inpatient Condition: Fair
--- NOTE | 2025-01-08 08:27 | Hospitalist Progress Note ---
Date of Service January 08, 2025 Assessment & Plan (1) Pancytopenia: (2) Anxiety: (3) Bipolar 2 disorder: Plan 64 yr old M with PMHx of AML previously on chemotherapy, chronic myeloproliferative disease, pancytopenia, bipolar d/o, alpha thalassemia presents to [facility] for evaluation of pancytopenia. Likely diagnosis of AML. Uncertain if he has had this worked up to any degree after being discharged. Patient is a poor historian. No active bleed #Pancytopenia #AML Maintain isolation precautions s/p 1 unit platelets and 1 unit PRBCs - Onc recs appreciated, goal Hgb > 7.5, goal platelet > 15 - will request palliative care for GoC discussion #Anxiety/bipolar 2/mental health Continue doxepin Continue hydroxyzine Continue Trileptal Continue prazosin #Dispo: will hold him for one more day, assess counts tomorrow to see if additional tranfusion is required Tentative d/c planned for 01/09/25 Admission and Anticipated Discharge Date Admission Date: January 07, 2025 Subjective No acute events overnight Tolerated 1 unit prbc / 1 unit platelet transfusion No new complaints Review of Systems Review of Systems: Comprehensive ROS completed and is otherwise negative. Physical Exam Physical Exam: Gen: no acute distress, lying in bed comfortable HEENT: NC/AT, MMM, pallor Lungs: nonlabored breathing, CTAB CVS: s1s2nl, RRR Abd: nl bowel sounds, soft, NT / ND : no penaloza Ext: no edema Neuro: AAOx3 Psych: calm, cooperative Results & Data Results & Data Vital Signs (Past 12 Hours) Vital Signs Temp Pulse Pulse Pulse Resp BP BP 01/08/25 07:23 37.0 C 70 16 92/56 L 01/08/25 06:03 36.9 C 68 16 92/61 L 01/08/25 05:03 36.6 C 81 16 105/55 L 01/08/25 04:33 36.9 C 74 16 100/55 L 01/08/25 04:18 36.8 C 71 16 91/57 L 01/08/25 04:00 36.6 C 73 16 95/58 L 01/08/25 03:44 36.5 C 79 16 93/55 L 01/08/25 03:43 36.5 C 79 16 93/55 L 01/08/25 03:16 36.5 C 72 18 93/53 L 01/08/25 02:46 36.4 C L 67 18 96/61 L 01/08/25 02:31 36.5 C 67 18 102/61 01/08/25 02:11 36.5 C 70 18 91/59 L 01/08/25 00:37 72 01/08/25 00:24 36.5 C 75 18 114/75 01/08/25 00:00 66 18 89/58 L 01/07/25 22:00 71 12 108/64 01/07/25 21:27 79 01/07/25 20:34 37 C 82 18 133/79 Pulse Ox O2 Del Method O2 Flow Rate 01/08/25 07:23 96 2 01/08/25 06:03 97 01/08/25 05:03 97 01/08/25 04:33 99 01/08/25 04:18 95 01/08/25 04:00 96 01/08/25 03:44 97 01/08/25 03:43 97 01/08/25 03:16 95 01/08/25 02:46 95 01/08/25 02:31 96 01/08/25 02:11 96 01/08/25 00:37 01/08/25 00:24 97 Room Air 01/08/25 00:00 99 Room Air 01/07/25 22:00 96 01/07/25 21:27 01/07/25 20:34 98 Room Air PG Care Time/CCT Total # of Minutes Spent Total Time Spent with Patient: Total time spent is greater than 50% in coordination of care (as documented) at patient's floor/unit and/or counseling patient: Coding Level of Care Code 52963 SUB INP/OBS CARE 3/50MIN Diagnoses Pancytopenia D61.818 Anxiety F41.9 Bipolar 2 disorder F31.81
[2025-01-08] MEDS ORDERED: OXCARBAZEPINE 150 MG PO SCH (09:00)
[2025-01-08 09:53] LABS: Alanine Aminotransferase 8.0 U/L (7-52); Albumin Level 3.9 gm/dl (3.4-5.0); Alkaline Phosphatase 84.0 U/L (34-104); Anion Gap 4.0 (3-11); Bilirubin,Total 0.6 mg/dl (0.2-1.0); Blood Urea Nitrogen 15.0 mg/dl (6-23); Calcium 8.1 mg/dl (8.6-10.3); Carbon Dioxide 27.0 mmol/L (21-32); Chloride 108.0 mmol/L (98-107); Creatinine Clr Calc Pharmacy 59.2 ml/min; Glucose 116.0 mg/dl (70-99(Fasting)); Potassium 4.2 mmol/L (3.5-5.1); Sodium 139.0 mmol/L (136-145); Total Protein 5.8 gm/dl (6.0-8.3)
[2025-01-08 10:05] LABS: Hematocrit (blood only) 23.6 % (42.0-52.0); Hemoglobin 7.6 g/dl (14.0-18.0); Mean Corpuscular Hemoglobin 26.5 pg (25.0-34.0); Mean Corpuscular Volume 82.2 fL (80.0-100.0); Platelet Count 24 K/uL (130-400); RDW Standard Deviation 61.1 fL (36.4-46.3); Red Blood Count 2.87 M/uL (4.70-6.10); White Blood Count 0.51 K/ul (4.8-10.8)
--- NOTE | 2025-01-08 12:45 | Oncology Consultation ---
Date of Consultation January 08, 2025 Assessment & Plan (1) AML (acute myeloblastic leukemia): Plan -Agree with transfusing for hemoglobin below 7.5, platelet count below 15,000. -Follow-up with information technology intern at the longterm. Can also schedule follow-up with Dr. Juárez of hematology at [facility] or [facility] if patient agrees. May benefit from palliative care evaluation outpatient/inpatient. History of Present Illness Reason for Consultation: AML Attending Physician: Mary Zambrano MD History of Present Illness 64-year-old gentleman with history of AML diagnosed in March, for which he received induction treatment with Vidaza plus venetoclax in April, at [facility]. Patient was followed by my colleague Dr. Juárez at [facility] hematology and also followed at [facility] hemat[facility] up until September, when he decided to transfer treatment to the longterm. He was admitted for severe pancytopenia with WBC of 0.69, hemoglobin 6.9, hematocrit 20.4 platelet count of 2000. Received PRBC and platelet transfusion with labs showing hemoglobin of 7.6, hematocrit 23.6 and platelet count of 24,000 today. Allergies Allergy/AdvReac Type Severity Reaction Status Date / Time No Known Allergies Allergy Verified 01/07/25 22:12 Home Medications Medication Instructions Recorded Confirmed Type oxcarbazepine 150 mg 150 mg PO BID 07/06/23 01/07/25 History tablet,extended release 24 hr oxcarbazepine 300 mg tablet 300 mg PO BID 07/06/23 01/07/25 History hydroxyzine pamoate 50 mg capsule 100 mg PO HS 10/14/23 01/07/25 History cyanocobalamin (vitamin B-12) 500 500 mcg PO DAILY 12/23/24 01/07/25 History mcg tablet (Vitamin B-12) doxepin 100 mg capsule 100 mg PO HS 12/23/24 01/07/25 History hydroxyzine pamoate 25 mg capsule 25 mg PO DAILY 12/23/24 01/07/25 History ketoconazole 2 % topical cream 1 applic topical BID 12/23/24 01/07/25 History multivitamin 1 tab PO DAILY 12/23/24 01/07/25 History prazosin 2 mg capsule 4 mg PO HS 12/23/24 01/07/25 History Patient History Medical History AML (acute myeloblastic leukemia) Surgical History History of hernia repair Social History Smoking Status: Former smoker Tobacco Type: E-cigarettes / Vaping Smoking End Date: 1 year ago; Second Hand Exposure: Yes; Do You Dip or Chew Tobacco: No; Hx Alcohol Use: No Hx Substance Use: No Preferred Language: Wallisian Communication Ability: Effective Contract Sheltered Workshop Supervisor Required: No Beliefs That Will Affect Care: None Current Living Situation: Other Current Living Situation Comment: inmate Feels Safe at Home: Yes Assistive Devices: None Results & Data Vital Signs (Past 12 Hours) Vital Signs Temp Pulse Pulse Resp BP BP Pulse Ox 01/08/25 11:20 37.1 C 72 18 120/68 97 01/08/25 07:23 37.0 C 70 16 92/56 L 96 01/08/25 06:45 74 01/08/25 06:03 36.9 C 68 16 92/61 L 97 01/08/25 05:03 36.6 C 81 16 105/55 L 97 01/08/25 04:33 36.9 C 74 16 100/55 L 99 01/08/25 04:18 36.8 C 71 16 91/57 L 95 01/08/25 04:00 36.6 C 73 16 95/58 L 96 01/08/25 03:44 36.5 C 79 16 93/55 L 97 01/08/25 03:43 36.5 C 79 16 93/55 L 97 01/08/25 03:16 36.5 C 72 18 93/53 L 95 01/08/25 02:46 36.4 C L 67 18 96/61 L 95 01/08/25 02:31 36.5 C 67 18 102/61 96 01/08/25 02:11 36.5 C 70 18 91/59 L 96 01/08/25 00:37 72 O2 Del Method O2 Flow Rate 01/08/25 11:20 Room Air 01/08/25 07:23 2 01/08/25 06:45 01/08/25 06:03 01/08/25 05:03 01/08/25 04:33 01/08/25 04:18 01/08/25 04:00 01/08/25 03:44 01/08/25 03:43 01/08/25 03:16 01/08/25 02:46 01/08/25 02:31 01/08/25 02:11 01/08/25 00:37
[2025-01-08 14:24] LABS: Blast # (manual) 0.04 K/uL (0-0)
[2025-01-08] MEDS: PRAZOSIN HCL 1 MG CAP PO SCH (20:57)
[2025-01-08] MEDS: DOXEPIN HCL 50 MG CAPSULE PO SCH (20:57)
--- NOTE | 2025-01-08 22:05 | Palliative Care Consultation ---
Date of Consultation January 08, 2025 Assessment & Plan (1) Neoplastic (malignant) related fatigue: pancytopenia platelet transfusions are giving him the improvement he seeks (2) Advanced care planning/counseling discussion: A 30 min face to face ACP meeting was held at bedside with Bello [place]: he states that as far as his GIC are concerned, he would like anything offered until they are no longer helpful. He wants continued platelets etc and says the oncologist that he sees by telemed told him he may need more chemo. He is willing to take chemo if needed but admits it was hard to tolerate first round. He emphasized not wanting to be isolated from general population bc social isolation adds to his suffering - the guards clarified that "isolation" is a correction decision, not necessarily ours. I encouraged him to wear a mask now that colder weather is coming and people are indoors more. We discussed that his AML is an "Acute" leukemia and "acute" means that the disease is aggressive/develops rapidly - becoming more refractory with persistent low cell counts etc. He has what is referred to as "Adverse risk" AML, whichrefers to a specific sub-type with a higher chance of a poor outcome, including increased risk of relapse after treatment. This classification is bas ed on specific genetic and molecular characteristics of the cancer cells.For patients in the adverse risk category, the leukemia is generally more difficult to treat and less responsive to standard chemotherapy. To address this challenge, treatment plans are often more intensive and may include a stem cell transplant if the patient is a suitable candidate, however he was felt not to be a candidate. We reviewed that bone marrow starts to produce higher amounts of leukemia cells instead of healthy platelets, leading to uncontrolled bleeding and easy bruising - often a sign of progressive disease and treatment becomes more limited and a shift to QOL/comfort would be reasonable. Even after successful treatment, AML can recur (relapse), as small traces of cancer cells can remain and lead to a return of the disease. AML is considered aggressive - it can progress rapidly/requires prompt treatment, with potential outcomes including remission, relapse, or long-term cure, depending on factors like age, the specific AML subtype, and overall health. As AML progresses towards the final stages, patients may experience constant coldness, paleness, fatigue, and drowsiness. They may also begin to lose control of their bladder and bowel function. In some rare cases, the blood can become too thick due to the presence of too many cancerous cells He told me he isnt afraid to but is happy with his QOL right now - feels "perked up and energized by these platelets" and wants to continue them for now, does not mind coming for weekly infusions if needed. He is all set for dc today and has no acute issues. I told him Id be happy to see him in OP clinic or by telemedicine if acute issues arose or disease progresses. (3) Weakness generalized: (4) Palliative care by specialist: Introduced Palliative Medicine and explained our role in patient's care. Patient and/or family were receptive to palliative services for goals of care discussions. Reviewed we are different from hospice, a home health nurse visiting service. Plan As above Thank you for allowing us to participate in the ongoing care of this patient. Please page with any additional concerns. Sendy Jorge DNP Director, Palliative Medicine History of Present Illness Reason for Consultation: establish goals of care Attending Physician: Mary Zambrano MD History of Present Illness Bello [place] is a 64yo inmate [facility] admitted 01/07 with pancytopenia due to progressive AML. 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 He has been on Vidaza plus venetoclax but has ongoing issues with pancytopenia, this admission WBC 0.69. Platelets today 24k. He was seen by [facility] oncology as well as [facility] Dr Juárez and then transferred care to correction med onc. He is not a good historian, this appears c/w prior admissions as well/is his baseline. On prior admission it was noted he likely +progression of AML b/c bone marrow biopsy revealed MRD positive disease post induction. Prior onc notes indicate [facility] had ?plan for SCT however this has not occurred and he elected to transfer oncologic care to correction oncologist. Palliative Medicine is consulted to assist with GOC initiation. Allergies Allergy/AdvReac Type Severity Reaction Status Date / Time No Known Allergies Allergy Verified 01/07/25 22:12 Home Medications Medication Instructions Recorded Confirmed Type oxcarbazepine 150 mg 150 mg PO BID 07/06/23 01/07/25 History tablet,extended release 24 hr oxcarbazepine 300 mg tablet 300 mg PO BID 07/06/23 01/07/25 History hydroxyzine pamoate 50 mg capsule 100 mg PO HS 10/14/23 01/07/25 History cyanocobalamin (vitamin B-12) 500 500 mcg PO DAILY 12/23/24 01/07/25 History mcg tablet (Vitamin B-12) doxepin 100 mg capsule 100 mg PO HS 12/23/24 01/07/25 History hydroxyzine pamoate 25 mg capsule 25 mg PO DAILY 12/23/24 01/07/25 History ketoconazole 2 % topical cream 1 applic topical BID 12/23/24 01/07/25 History multivitamin 1 tab PO DAILY 12/23/24 01/07/25 History prazosin 2 mg capsule 4 mg PO HS 12/23/24 01/07/25 History Patient History Medical History AML (acute myeloblastic leukemia) Surgical History History of hernia repair Social History Smoking Status: Former smoker Tobacco Type: E-cigarettes / Vaping Smoking End Date: 1 year ago; Second Hand Exposure: Yes; Do You Dip or Chew Tobacco: No; Hx Alcohol Use: No Hx Substance Use: No Preferred Language: Lithuanian Communication Ability: Effective Chemist Internship Required: No Beliefs That Will Affect Care: None Current Living Situation: Other Current Living Situation Comment: inmate Feels Safe at Home: Yes Assistive Devices: None Review of Systems Review of Systems: All systems reviewed & are unremarkable except as noted in Subjective Physical Exam Physical Exam: resting in bed lunch delivered at time of my visit no acute distress no resp distress faint ecchymoses, not actively bleeding color pale but warm AAOx3 at times deflecting/tangential but will follow commands appropriately Results & Data Vital Signs (Past 12 Hours) Vital Signs Temp Pulse Pulse Resp BP Pulse Ox O2 Del Method 01/08/25 19:32 36.5 C 68 18 119/70 96 Room Air 01/08/25 15:09 37.1 C 77 18 126/59 L 97 Room Air 01/08/25 13:00 70 01/08/25 11:20 37.1 C 72 18 120/68 97 Room Air Laboratory Results 01/08/25 01/07/25 01/07/25 Range/Units 08:55 22:26 21:17 WBC 0.51 L* 0.69 L* (4.8-10.8) K/ul RBC 2.87 L 2.52 L (4.70-6.10) M/uL Hgb 7.6 L 6.9 L* (14.0-18.0) g/dl Hct 23.6 L 20.4 L* (42.0-52.0) % MCV 82.2 81.0 (80.0-100.0) fL MCH 26.5 27.4 (25.0-34.0) pg MCHC 32.2 33.8 (32.0-36.0) g/dL RDW Std Deviation 61.1 H 65.1 H (36.4-46.3) fL RDW Coeff of Dominic 21.1 H 22.9 H (11.5-14.5) % Plt Count 24 L* D 2 L* (130-400) K/uL Immature Gran % (Auto) % Neut % (Auto) % Lymph % (Auto) % Ingham % (Auto) % Eos % (Auto) % Baso % (Auto) % Neut # (Auto) (1.40-6.50) K/uL Lymph # (Auto) (1.20-3.40) K/uL Ingham # (Auto) (0.11-0.59) K/uL Eos # (Auto) (0.00-0.50) K/uL Baso # (Auto) (0.00-0.20) K/uL Immature Gran # (Auto) (0.01-0.20) K/uL Neutrophils % (Manual) 54 % Lymphocytes % (Manual) 36 % Monocytes % (Manual) 4 % Basophils % (Manual) 1 % Blast Cells % (Manual) 5 % Neutrophils # (Manual) 0.37 L (1.40-6.50) K/uL Lymphocytes # (Manual) 0.25 L (1.2-3.4) K/uL Monocytes # (Manual) 0.03 L (0.11-0.59) K/uL Basophils # (Manual) 0.01 (0-0.2) K/uL Blast Cells # (Man) 0.04 H (0-0) K/uL Platelet Estimate Decreased L (Normal) Sodium 139 139 (136-145) mmol/L Potassium 4.2 3.8 (3.5-5.1) mmol/L Chloride 108 H 108 H (98-107) mmol/L Carbon Dioxide 27 25 (21-32) mmol/L Anion Gap 4 6 (3-11) BUN 15 20 (6-23) mg/dl Creatinine 0.96 1.05 (0.6-1.4) mg/dl Est Cr Clr Drug Dosing 59.2 54.2 ml/min eGFR 87.72 78.77 BUN/Creatinine Ratio 15.6 19.0 (10-20) Glucose 116 H 121 H (70-99(Fasting)) mg/dl Calcium 8.1 L 8.4 L (8.6-10.3) mg/dl Total Bilirubin 0.6 0.4 (0.2-1.0) mg/dl Direct Bilirubin 0.1 (0-0.2) mg/dl AST 16 17 (13-39) U/L ALT 8 10 (7-52) U/L Alkaline Phosphatase 84 89 (34-104) U/L Total Protein 5.8 L 6.5 (6.0-8.3) gm/dl Albumin 3.9 4.0 (3.4-5.0) gm/dl Globulin 2.5 (2.5-4.0) gm/dl Albumin/Globulin Ratio 1.6 (0.9-2) Blood Type A Positive Antibody Screen NEGATIVE Crossmatch See Detail Diagnostic Findings no imaging PG Care Time/CCT Total # of Minutes Spent Total Time Spent with Patient: Total time spent is greater than 50% in coordination of care (as documented) at patient's floor/unit and/or counseling patient: I spent 90 minutes overall addressing this case: 15 min in medical data review/discussion with referring provider(s) and/or preparation for the visit 15 min in direct interaction with the patient/exam 30 min in Advance Care Planning/Goals of Care discussions as detailed above in note (must be >16min) 15 min in subsequent review and synthesis of assessment and plan 15 min communicating with other providers regarding the patient's case: Advanced Care Planning 33902 Advanced Care Planning 30 [place] [address] IN/OBS CONSULT LVL 4,60M (25 - SIGNIFICANT, SEPARATELY IDENTIFIABLE ) Patient Type New Medical Decision Making High Complexity Diagnoses Neoplastic (malignant) related fatigue R53.0 Advanced care planning/counseling discussion Z71.89 Weakness generalized R53.1 Palliative care by specialist Z51.5 Additional Codes Advanced Care Planning - 88054 Advanced Care Planning 30 Min: 91259 Advanced Care Planning 30 Min ([id number]) Comment [id number], [id number]
[2025-01-09 04:15] LABS: Anion Gap 4.0 (3-11); Blood Urea Nitrogen 16.0 mg/dl (6-23); Calcium 8.1 mg/dl (8.6-10.3); Carbon Dioxide 27.0 mmol/L (21-32); Chloride 108.0 mmol/L (98-107); Creatinine Clr Calc Pharmacy 52.2 ml/min; Glucose 98.0 mg/dl (70-99(Fasting)); Magnesium 2.1 mg/dl (1.7-2.4); Potassium 4.0 mmol/L (3.5-5.1); Sodium 139.0 mmol/L (136-145)
[2025-01-09 04:32] LABS: Hematocrit (blood only) 24.1 % (42.0-52.0); Hemoglobin 7.9 g/dl (14.0-18.0); Mean Corpuscular Hemoglobin 27.1 pg (25.0-34.0); Mean Corpuscular Volume 82.8 fL (80.0-100.0); Platelet Count 21 K/uL (130-400); RDW Standard Deviation 61.8 fL (36.4-46.3); Red Blood Count 2.91 M/uL (4.70-6.10); White Blood Count 0.66 K/ul (4.8-10.8)
[2025-01-09 05:58] LABS: Anisocytosis Present; Immature Granulocytes # (auto) 0.01 K/uL (0.01-0.20); Immature Granulocytes % (auto) 1.5 %; Schistocytes 1+
[2025-01-09] MEDS ORDERED: SODIUM CHLORIDE 0.9% 100 ML IV PRN (09:56)
[2025-01-09 12:04] VITALS: RESP 18; TEMP 98.2; O2SAT 98
[2025-01-09 14:23] LABS: Platelet Count 33 K/uL (130-400)
[2025-01-09 15:33] VITALS: BP 115/60
[2025-01-09 15:38] VITALS: PULSE 74
--- NOTE | 2025-01-09 16:00 | Discharge Summary ---
Discharge Summary Date of Service January 09, 2025 Principal Dx & Hospital Course #1 = Principal Diagnosis (1) Pancytopenia: (2) Anxiety: (3) Bipolar 2 disorder: Plan 64 yr old M with PMHx of AML previously on chemotherapy, chronic myeloproliferative disease, pancytopenia, bipolar d/o, alpha thalassemia presents to [facility] for evaluation of pancytopenia. Likely diagnosis of AML. Uncertain if he has had this worked up to any degree after being discharged. Patient is a poor historian. No active bleed #Pancytopenia #AML Maintain isolation precautions s/p 2 unit platelets and 1 unit PRBCs - Onc recs appreciated, goal Hgb > 7.5, goal platelet > 15 (at the time of discharge Hgb: 7.9, plt: 33) - palliative care support appreciated, pt is full code and full care - Oncology appoint on 02/03 and hematology appointment on 02/11 #Anxiety/bipolar 2/mental health Continue doxepin Continue hydroxyzine Continue Trileptal - would benefit from switching to Latuda given bone marrow suppression Continue prazosin #Dispo: signed out to URVASHI Lozano, above plan discussed in detail. pt accepted back to [facility]. Admission HPI Per Admitting Provider 64-year-old male with history of AML previous on chemotherapy, chronic myeloproliferative disease, pancytopenia, bipolar 2 disorder and alpha t halassemia presenting again from present with pancytopenia. Patient was recently admitted from 12/23 - 12/24/2024 after presenting with the same. At that time he was transfused with 2 units PRBCs and 1 unit of platelets. He was discharged home with instruction to follow-up with oncology. Patient reports he has not yet seen oncology but he does have a port in the right chest - not sure who placed that. Patient went to the [facility] due to bruising on his arms, legs and back. Otherwise he denies fever, chills, chest pain, cough, shortness of breath Discharge Exam Gen: no acute distress, lying in bed comfortable HEENT: NC/AT, MMM, pallor Lungs: nonlabored breathing, CTAB CVS: s1s2nl, RRR Abd: nl bowel sounds, soft, NT / ND : no penaloza Ext: no edema Neuro: AAOx3 Psych: calm, cooperative Discharge Plan Discharge Items [facility] Disposition[facility] Reason For Visit: ANEMIA, THROMBOCYTOPENIA Discharge Diagnosis: Anemia / Thrombocytopenia Condition on Discharge: Fair Activity: Resume your previous activity Non-emergency contact: Primary Care Provider and Oncologist Call non-emergency contact if: you have any medication questions, your symptoms worsen and your pain is not controlled Follow-up/Referrals: Eric HALE [Primary Care Provider] - Diet: Regular Addtl Attending Provider Instructions: 1. You need to establish with oncology / hematology for outpatient infusion of platelets and red blood cell. 2. You need to talk to outpatient psychiatry regarding switching from Trileptal to Latuda 3. Follow with palliative care for symptom management as needed Pending Studies at Discharge: No Stand-Alone Forms: My [employer] Management Skilled Items Patient informed of condition?: Yes Discharge Level of Care: Other Communicable Disease: No Discharge Prognosis: Stable Lines: None Urinary Catheter: No Medications and DC Order Prescriptions: Continued oxcarbazepine 300 mg Tablet 300 mg PO BID Rx Instructions: CRUSH TOTAL DOSE 450 MG--TAKES WITH 150 MG TAB. oxcarbazepine 150 mg Tablet Extended Release 24 Hr 150 mg PO BID Rx Instructions: CRUSH TOTAL DOSE 450 MG--TAKES WITH 300 MG TAB. hydroxyzine pamoate 50 mg Capsule 100 mg PO HS Rx Instructions: CRUSH doxepin 100 mg Capsule 100 mg PO HS Rx Instructions: CRUSH ketoconazole 2 % Cream 1 applic TOPICAL BID prazosin 2 mg Capsule 4 mg PO HS Rx Instructions: CRUSH multivitamin Tablet 1 tab PO DAILY cyanocobalamin (vitamin B-12) [Vitamin B-12] 500 mcg Tablet 500 mcg PO DAILY hydroxyzine pamoate 25 mg Capsule 25 mg PO DAILY Rx Instructions: [facility] Discharge Orders: Discharge Order (Routine); Ordered 01/09/25 Ordered By: Mary Zambrano Admission Data Admit Date/Time: 01/07/25 23:31 Attending Provider: Mary Zambrano Admit Provider: Tawnya Stewart Primary Care Provider: Eric HALE Other Providers: Roslyn Easton; Tawnya Stewart; Brie Arevalo; Ashanti Jorge. Other Interventions: Discharge Summary Assessment (RN) Last Done: 01/09/25 15:00 Hospital Stay Data Consultations 01/07/25 22:02 ED Decision to Admit Stat 01/07/25 23:31 Consult Oncology Routine 01/08/25 15:24 Consult Palliative Care Routine Pending Results Patient Have Any Pending Studies at Discharge: No Discharge Instructions Given to Patient (Per Discharging Provider) 1. You need to establish with oncology / hematology for outpatient infusion of platelets and red blood cell. 2. You need to talk to outpatient psychiatry regarding switching from Trileptal to Latuda 3. Follow with palliative care for symptom management as needed Total Time Total Time Spent Total Time Spent (In Minutes): 45 Coding Level of Care Code 12612 INP/OBS DISCH >30 MIN Diagnoses Pancytopenia D61.818 Anxiety F41.9 Bipolar 2 disorder F31.81
[2025-01-09] MEDS: HEPARIN 100 UNIT/ML 5ML FLUSH FLUSH ONE (16:10)
== END 2025-01-09 17:58 | DRG 835 ==
LOC: ED 20:31 → SUATTDRO 23:31 → 2W 23:31
DX: C92.00 Acute myeloblastic leukemia, not having achieved remission; D61.818 Other pancytopenia; F41.9 Anxiety disorder, unspecified; D69.6 Thrombocytopenia, unspecified; Z87.891 Personal history of nicotine dependence; D56.0 Alpha thalassemia; F31.81 Bipolar II disorder

== ENCOUNTER 2025-01-24 15:35 | Inpatient (IN) ==
--- NOTE | 2025-01-24 16:04 | Emergency Department Note ---
Impression & Plan Pancytopenia, Anemia requiring transfusions, Thrombocytopenia, Neutropenia ED Provider Note HISTORY OF PRESENT ILLNESS: Patient is a 65-year-old male presenting with abnormal blood test. Patient presents from [facility]. Patient has a history of leukemia believed to be AML. He had outpatient laboratory workup that showed pancytopenia with a white count of 3.5 and platelets of 3. He was referred to the emergency department. Patient denies any fevers. He reports he does not take any medications for his leukemia. He denies any chills. Denies any chest pain or shortness of breath. Denies abdominal pain, nausea or vomiting. Denies noticing any new bruises or rashes. He does report that a few days ago he was brushing his teeth and had bleeding from his gumline. He reports this only occurred 2 days ago and has not occurred since. ROS: as above PHYSICAL EXAM: Constitutional: Patient appears in no acute distress. HENT: Head: Normocephalic and atraumatic. Eyes: EOMI, PERRL Mouth/Throat: Mucous membranes moist. Patient noted to have some petechia of the hard palate. Neck: Trachea midline. Neck supple. Cardiovascular: RRR, No murmurs, rubs or gallops. Intact distal pulses. Pulmonary/Chest: No respiratory distress. Breath sounds clear and equal bilaterally. No wheezes or rales. Abdominal: Abdomen soft, no tenderness, rebound or guarding. Musculoskeletal: No edema, tenderness or deformity noted. Skin: Warm and dry. No erythema, pallor or cyanosis. Scattered petechia on the upper chest and face. Psychiatric: Appropriate mood and affect for situation. Neurological: Alert and keenly responsive. CN II-XII grossly intact, moving all extremities equally and fully. MDM: - Vitals signs stable. - History obtained via patient. History as above. - Chronic conditions affecting care: AML - Differential diagnoses include, but are not limited to: Sepsis; GI bleed; thrombocytopenia; electrolyte abnormality; blast crisis - Order placed for continuous cardiac monitoring. At this time, monitor showed rate of 74 bpm with normal sinus rhythm, per my interpretation. - External medical records reviewed. Discharge summary dated 01/09/2025 was reviewed. Patient was admitted to the hospital for pancytopenia believed to be AML. He was status post 2 units of platelets and 1 unit of PRBCs. At discharge his hemoglobin was 7.9 and platelet count of 33. - Laboratory workup interpreted by myself showed pancytopenia (WBC 0.67; Hgb 6.9; plt 2); neutropenia (ANC 0.10); normal PT/INR; stable electrolytes; hypoglycemia (glucose 68); normal AST/ALT; normal lactate; normal procalcitonin - Blood cultures obtained - Discussed case with hematology/oncology sponge clipper, Dr. Easton, at 17:30. Recommended that the patient be transfuse for hemoglobin less than 7 and platelets less than 15,000. I did discuss patient's critically low levels on today's laboratory workup. It was recommended that the patient receive transfusion of leukoreduced PRBCs and platelets. - Consented the patient for transfusion of platelets and blood. 1 unit PRBCs was ordered for transfusion now and 2 units of platelets. - Patient was placed on neutropenic precautions. - Discussion was had with employment evaluator/case manager about patient's case and need for admission - Hospitalist consulted for admission - [facility]. I have personally spent 61 minutes of critical care time in the direct management of this patient. This includes bedside care, interpretation of diagnostic studies, and testing, discussion with consultants, patient, and family members, and other required patient management activities. This 61 minutes is in excess of all separately billable procedures. ASSESSMENT AND PLAN: Diagnosis: Pancytopenia; neutropenia; anemia requiring transfusions; thrombocytopenia Plan: Admit Past Med/Surg History Problem List (Updated 01/24/25 @ 18:20 by Dianna Hernandez MD) Neutropenia (Acute) Thrombocytopenia (Acute) Anemia requiring transfusions (Acute) Pancytopenia (Acute) Advanced care planning/counseling discussion Neoplastic (malignant) related fatigue Fatigue Palliative care by specialist Weakness generalized AML (acute myeloblastic leukemia) Pancytopenia (Acute) Myeloblastic leukemia (Acute) Pancytopenia (Acute) C. difficile colitis Severe sepsis PTSD (post-traumatic stress disorder) Anxiety Bipolar 2 disorder Acute diarrhea Neutropenic fever (Acute) Acute hypokalemia (Acute) KRISHAN (acute kidney injury) (Acute) Medical History AML (acute myeloblastic leukemia) Surgical History History of hernia repair Social History Smoking Status: Former smoker Tobacco Type: E-cigarettes / Vaping Second Hand Exposure: Yes; Do You Dip or Chew Tobacco: No; Hx Alcohol Use: No Hx Substance Use: No Preferred Language: Kenyan Communication Ability: Effective Microsoft Exchange Administrator Required: No Beliefs That Will Affect Care: None Current Living Situation: Other Current Living Situation Comment: inmate Feels Safe at Home: Yes Assistive Devices: None Allergies Allergies Allergy/AdvReac Type Severity Reaction Status Date / Time No Known Allergies Allergy Verified 01/07/25 22:12 Home Meds Home Medications Medication Instructions Recorded Confirmed oxcarbazepine 150 mg 150 mg PO BID 07/06/23 01/07/25 tablet,extended release 24 hr oxcarbazepine 300 mg tablet 300 mg PO BID 07/06/23 01/07/25 hydroxyzine pamoate 50 mg capsule 100 mg PO HS 10/14/23 01/07/25 cyanocobalamin (vitamin B-12) 500 500 mcg PO DAILY 12/23/24 01/07/25 mcg tablet (Vitamin B-12) doxepin 100 mg capsule 100 mg PO HS 12/23/24 01/07/25 hydroxyzine pamoate 25 mg capsule 25 mg PO DAILY 12/23/24 01/07/25 ketoconazole 2 % topical cream 1 applic topical BID 12/23/24 01/07/25 multivitamin 1 tab PO DAILY 12/23/24 01/07/25 prazosin 2 mg capsule 4 mg PO HS 12/23/24 01/07/25 Results & Data (ED) Vital Signs Vital Signs - 24 hr 01/24/25 15:38 01/24/25 17:40 Temperature 36.3 C L Temperature Source Temporal Artery Scan Pulse Rate 80 74 Respiratory Rate 18 Respiratory Effort / Characteristics Non-Labored Spontaneous Respiratory Depth Normal Blood Pressure 130/63 Blood Pressure Mean 85 Pulse Oximetry 100 Oxygen Delivery Method Room Air Sepsis Recent Fever Within 48 Hours No Sepsis New/Unexplained Change in Mental Status N/A Sepsis Action Taken by Nursing No Action Required Laboratory Data 01/24/25 16:14 01/24/25 16:11 Lab Results 01/24/25 01/24/25 Range/Units 16:11 16:14 WBC 0.67 L* (4.8-10.8) K/ul RBC 2.59 L (4.70-6.10) M/uL Hgb 6.9 L* (14.0-18.0) g/dl Hct 21.7 L (42.0-52.0) % MCV 83.8 (80.0-100.0) fL MCH 26.6 (25.0-34.0) pg MCHC 31.8 L (32.0-36.0) g/dL RDW Std Deviation 63.3 H (36.4-46.3) fL RDW Coeff of Dominic 21.7 H (11.5-14.5) % Plt Count 2 L* (130-400) K/uL Neutrophils % (Manual) 15 % Lymphocytes % (Manual) 69 % Monocytes % (Manual) 5 % Eosinophils % (Manual) 1 % Myelocytes % (Man) 1 % Blast Cells % (Manual) 9 % Neutrophils # (Manual) 0.10 L (1.40-6.50) K/uL Total Absolute Neuts 0.10 L* (1.4-6.5) K/uL Lymphocytes # (Manual) 0.46 L (1.2-3.4) K/uL Total Abs Lymphocytes 0.46 L (1.2-3.4) K/uL Monocytes # (Manual) 0.03 L (0.11-0.59) K/uL Eosinophils # (Manual) 0.01 (0-0.50) K/uL Myelocytes # (Manual) 0.01 H (0-0) K/uL Blast Cells # (Man) 0.06 H (0-0) K/uL Polychromasia 1+ Hypochromasia Present Anisocytosis Present Tear Drop Cells 1+ Ovalocytes 1+ PT 9.8 (9.0-12.0) Seconds INR 0.9 (0.9-1.1) Sodium 141 (136-145) mmol/L Potassium 4.1 (3.5-5.1) mmol/L Chloride 106 (98-107) mmol/L Carbon Dioxide 27 (21-32) mmol/L Anion Gap 8 (3-11) BUN 18 (6-23) mg/dl Creatinine 1.03 (0.6-1.4) mg/dl Est Cr Clr Drug Dosing 54.5 ml/min eGFR 80.11 BUN/Creatinine Ratio 17.5 (10-20) Glucose 68 L (70-99(Fasting)) mg/dl Lactate 0.8 (0.4-2.0) mmol/L Calcium 9.2 (8.6-10.3) mg/dl Magnesium 2.1 (1.7-2.4) mg/dl Total Bilirubin 0.3 (0.2-1.0) mg/dl AST 20 (13-39) U/L ALT 12 (7-52) U/L Alkaline Phosphatase 102 (34-104) U/L Total Protein 7.1 (6.0-8.3) gm/dl Albumin 4.2 (3.4-5.0) gm/dl Globulin 2.9 (2.5-4.0) gm/dl Albumin/Globulin Ratio 1.4 (0.9-2) Procalcitonin 0.05 (0-0.5) ng/ml Blood Type A Positive Antibody Screen NEGATIVE Crossmatch See Detail Discharge Plan Visit Data Chief Complaint: Abnormal Labs/Diagnostic Testing Stated Complaint: ABN LABS ED Provider: Dianna Hernandez Discharge Problem: Pancytopenia, Anemia requiring transfusions, Thrombocytopenia, Neutropenia Condition: Fair Forms Stand Alone Forms: My [facility] [place] [employer] Prescriptions Prescriptions: No Action oxcarbazepine 300 mg Tablet 300 mg PO BID Rx Instructions: CRUSH TOTAL DOSE 450 MG--TAKES WITH 150 MG TAB. oxcarbazepine 150 mg Tablet Extended Release 24 Hr 150 mg PO BID Rx Instructions: CRUSH TOTAL DOSE 450 MG--TAKES WITH 300 MG TAB. hydroxyzine pamoate 50 mg Capsule 100 mg PO HS Rx Instructions: CRUSH doxepin 100 mg Capsule 100 mg PO HS Rx Instructions: CRUSH ketoconazole 2 % Cream 1 applic TOPICAL BID prazosin 2 mg Capsule 4 mg PO HS Rx Instructions: CRUSH multivitamin Tablet 1 tab PO DAILY cyanocobalamin (vitamin B-12) [Vitamin B-12] 500 mcg Tablet 500 mcg PO DAILY hydroxyzine pamoate 25 mg Capsule 25 mg PO DAILY Rx Instructions: ALANA Referrals Referrals: [facility] [Non-Staff] -
[2025-01-24 16:43] LABS: Alanine Aminotransferase 12.0 U/L (7-52); Albumin Globulin Ratio 1.4 (0.9-2); Albumin Level 4.2 gm/dl (3.4-5.0); Alkaline Phosphatase 102.0 U/L (34-104); Anion Gap 8.0 (3-11); Bilirubin,Total 0.3 mg/dl (0.2-1.0); Blood Urea Nitrogen 18.0 mg/dl (6-23); Calcium 9.2 mg/dl (8.6-10.3); Carbon Dioxide 27.0 mmol/L (21-32); Chloride 106.0 mmol/L (98-107); Creatinine Clr Calc Pharmacy 54.5 ml/min; Globulin 2.9 gm/dl (2.5-4.0); Glucose 68.0 mg/dl (70-99(Fasting)); Magnesium 2.1 mg/dl (1.7-2.4); Potassium 4.1 mmol/L (3.5-5.1); Sodium 141.0 mmol/L (136-145); Total Protein 7.1 gm/dl (6.0-8.3)
[2025-01-24 16:52] LABS: INR 0.9 (0.9-1.1); Prothrombin Time 9.8 Seconds (9.0-12.0)
[2025-01-24 17:28] LABS: ALC (manual) 0.46 K/uL (1.2-3.4); ANC (manual) 0.10 K/uL (1.4-6.5); Anisocytosis Present; Blast # (manual) 0.06 K/uL (0-0); Hematocrit (blood only) 21.7 % (42.0-52.0); Hemoglobin 6.9 g/dl (14.0-18.0); Hypochromasia Present; Mean Corpuscular Hemoglobin 26.6 pg (25.0-34.0); Mean Corpuscular Volume 83.8 fL (80.0-100.0); Ovalocytes 1+; Platelet Count 2 K/uL (130-400); Polychromasia 1+; RDW Standard Deviation 63.3 fL (36.4-46.3); Red Blood Count 2.59 M/uL (4.70-6.10); Tear Drop Cells 1+; White Blood Count 0.67 K/ul (4.8-10.8)
[2025-01-24] MEDS ORDERED: SODIUM CHLORIDE 0.9% 100 ML IV PRN (17:32)
--- NOTE | 2025-01-24 18:38 | History & Physical Report ---
Date of Service January 24, 2025 Assessment & Plan (1) AML (acute myeloblastic leukemia): (2) Thrombocytopenia: (3) Neutropenia: (4) Pancytopenia: (5) Bipolar 2 disorder: Plan 64-year-old gentleman with AML diagnosed in March, for which he received induction treatment with Vidaza plus venetoclax in April, at [facility]. Patient was followed by Dr. Juárez at [facility] hematology and also followed at [facility] hematology up until September, when [facility]. Was not a candidate for SCT per last onc consult note and has a form of AML that tends to be more likely to relapse and be refractory to treatment. Recent admissions requiring transfusions 12/23-12/24 and 01/07-01/09. Met with palliative care Dr. Jorge and onc Dr. Easton and elected to keep his treatment with oncologist [facility]. #Pancytopenia due to AML: neutropenia and severe thrombocytopenia with Plt 2, symptomatic anemia minor mucosal bleeding only thus far, no evidence of significant acute bleeding no evidence of infection at this time ED discussed with Dr. Easton recommended goal Hgb > 7, goal platelet > 15 - transfusing platelets and RBC's to satisfy triggers above. AM CBC with diff. BMP reviewed today and is normal. - no evidence of infection, neutropenic precautions - full code and full care per pall care notes - he confirms this for me today - Has oncology appoint on 02/03 and hematology appointment on 02/11. intends to keep following up with the [facility] oncologist and hematology at [facility] #Anxiety/bipolar 2/mental health Continue doxepin Continue hydroxyzine Continue Trileptal - would benefit from switching to Latuda given bone marrow suppression Continue prazosin I will order these medications as per last discharge, unfortunately, I do not have a med list from the [facility] today high risk conditions: uncontrolled AML with severe thrombocytopenia at risk for spontaneous hemorrhage, severe neutropenia high risk for infection/sepsis high risk interventions: Platelet transfusion and blood transfusion DVT ppx: chemoppx and SCD contraindicated because of severe thrombocytopenia History of Present Illness Chief Complaint: bleeding gums, abnormal labs Primary Care Provider: [facility] 65-year-old man with AML who has recently been transfusion dependent sent in from [facility] with severe thrombocytopenia and anemia. The last few days he has had some bleeding from his gums including after brushing teeth and he woke up with some dried blood in his mouth today that is not currently bleeding. He has not noticed any other abnormal bleeding including no hematuria no melena or bright red blood per rectum. Generally he is feeling okay no fever chills or sweats, no cough shortness of breath or chest pain, no nausea vomiting diarrhea or abdominal pain, no dysuria or urinary urgency, no new skin problems petechial rash is unchanged, no acute joint pain. Allergies Allergy/AdvReac Type Severity Reaction Status Date / Time No Known Allergies Allergy Verified 01/07/25 22:12 Home Medications Medication Instructions Recorded Confirmed Type oxcarbazepine 150 mg 150 mg PO BID 07/06/23 01/24/25 History tablet,extended release 24 hr oxcarbazepine 300 mg tablet 300 mg PO BID 07/06/23 01/24/25 History hydroxyzine pamoate 50 mg capsule 100 mg PO HS 10/14/23 01/24/25 History cyanocobalamin (vitamin B-12) 500 500 mcg PO DAILY 12/23/24 01/24/25 History mcg tablet (Vitamin B-12) doxepin 100 mg capsule 100 mg PO HS 12/23/24 01/24/25 History hydroxyzine pamoate 25 mg capsule 25 mg PO DAILY 12/23/24 01/24/25 History multivitamin 1 tab PO DAILY 12/23/24 01/24/25 History prazosin 2 mg capsule 4 mg PO HS 12/23/24 01/24/25 History Past Med/Surg History Problem List Neutropenia (Acute) Thrombocytopenia (Acute) Anemia requiring transfusions (Acute) Pancytopenia (Acute) Advanced care planning/counseling discussion Neoplastic (malignant) related fatigue Fatigue Palliative care by specialist Weakness generalized AML (acute myeloblastic leukemia) Pancytopenia (Acute) Myeloblastic leukemia (Acute) Pancytopenia (Acute) C. difficile colitis Severe sepsis PTSD (post-traumatic stress disorder) Anxiety Bipolar 2 disorder Acute diarrhea Neutropenic fever (Acute) Acute hypokalemia (Acute) KRISHAN (acute kidney injury) (Acute) Surgical History History of hernia repair Social History Smoking Status: Former smoker Tobacco Type: E-cigarettes / Vaping Second Hand Exposure: Yes; Do You Dip or Chew Tobacco: No; Hx Alcohol Use: No Hx Substance Use: No Preferred Language: Bengali Communication Ability: Effective Therapist Required: No Beliefs That Will Affect Care: None Current Living Situation: Other Current Living Situation Comment: inmate Feels Safe at Home: Yes Assistive Devices: None Review of Systems Review of Systems: All systems reviewed & are unremarkable except as noted in HPI & below Physical Exam Physical Exam: PHYSICAL EXAMINATION Last 24h vital signs reviewed, see documentation in flowsheet General: comfortable appearing, no distress HEENT: Normocephalic, atraumatic, pupils round and equal, sclerae anicteric, no conjunctival injection, moist mucus membranes Lungs: Normal respiratory effort. Clear to auscultation bilaterally. No RRW Heart: Regular rate and rhythm, no murmurs. No JVD Abdomen: Soft, nontender, nondistended. Bowel sounds present. Extremities: Warm, dry, well-perfused. No extremity edema. skin: Warm and dry, petechial rash especially on distal extremities Neuro: Alert and oriented x 4, face symmetric, moves 4 extremities well Psych: Normal affect and behavior Results & Data Results & Data Vital Signs (Past 12 Hours) Vital Signs Temp Pulse Resp BP Pulse Ox O2 Del Method 01/24/25 18:25 36.7 C 66 18 126/69 100 01/24/25 17:40 74 01/24/25 15:38 36.3 C L 80 18 130/63 100 Room Air Laboratory Results white blood count 0.67 with ANC of 100, hemoglobin 6.9 platelets 2 there were 6 blast cells on the differential chemistry panel remarkable for glucose of 68 sodium 141, potassium 4.1, creatinine 1 which is baseline, magnesium 2.1 lactate was 0.8 procalcitonin 0.05 LFTs were normal there are no radiology studies PG Care Time/CCT Total # of Minutes Spent Total Time Spent with Patient: Total time spent is greater than 50% in coordination of care (as documented) at patient's floor/unit and/or counseling patient: Coding Level of Care Code 82629 INT INP/OBS CARE 3/75MIN Diagnoses AML (acute myeloblastic leukemia) C92.00 Thrombocytopenia D69.6 Neutropenia D70.9 Pancytopenia D61.818 Bipolar 2 disorder F31.81
[2025-01-24] MEDS ORDERED: MAGNESIUM HYDROXIDE SUSP 30 ML UDC PO PRN (21:03)
[2025-01-24] MEDS ORDERED: POLYETHYLENE (MIRALAX) 17 GM PACK PO PRN (21:03)
[2025-01-24] MEDS ORDERED: MELATONIN 3 MG TAB PO PRN (21:03)
[2025-01-24] MEDS ORDERED: ONDANSETRON INJ 2 MG/ML 2 ML VIAL IV PRN (21:03)
[2025-01-24] MEDS ORDERED: ACETAMINOPHEN 325 MG TAB PO PRN (21:03)
[2025-01-24] MEDS ORDERED: ALUMINUM/MAGNESIUM SUSP 30 ML UDC PO PRN (21:03)
[2025-01-24] MEDS: PRAZOSIN HCL 1 MG CAP PO SCH (21:38)
[2025-01-24] MEDS: DOXEPIN HCL 50 MG CAPSULE PO SCH (21:39)
[2025-01-25 04:26] LABS: Hematocrit (blood only) 19.1 % (42.0-52.0); Hemoglobin 6.3 g/dl (14.0-18.0); Mean Corpuscular Hemoglobin 27.8 pg (25.0-34.0); Mean Corpuscular Volume 84.1 fL (80.0-100.0); Platelet Count 35 K/uL (130-400); RDW Standard Deviation 56.7 fL (36.4-46.3); Red Blood Count 2.27 M/uL (4.70-6.10); White Blood Count 0.78 K/ul (4.8-10.8)
[2025-01-25] MEDS ORDERED: SODIUM CHLORIDE 0.9% 100 ML IV PRN (04:29)
[2025-01-25 05:02] LABS: ALC (manual) 0.44 K/uL (1.2-3.4); ANC (manual) 0.20 K/uL (1.4-6.5); Anisocytosis Present; Blast # (manual) 0.09 K/uL (0-0); Ovalocytes 1+; Polychromasia 2+; Tear Drop Cells 2+
[2025-01-25 08:25] LABS: Hematocrit (blood only) 24.0 % (42.0-52.0); Hemoglobin 7.9 g/dl (14.0-18.0)
[2025-01-25] MEDS: MULTIVITAMIN TAB PO SCH (08:43)
[2025-01-25] MEDS: CYANOCOBALAMIN (B-12) 500 MCG TABLET PO SCH (08:43)
[2025-01-25 11:42] VITALS: BP 118/74; RESP 18; TEMP 98.4; O2SAT 99
--- NOTE | 2025-01-25 13:50 | Discharge Summary ---
Discharge Summary Date of Service January 25, 2025 Principal Dx & Hospital Course #1 = Principal Diagnosis (1) AML (acute myeloblastic leukemia): (2) Thrombocytopenia: (3) Neutropenia: (4) Pancytopenia: (5) Bipolar 2 disorder: Plan 64-year-old gentleman with AML diagnosed in March, for which he received induction treatment with Vidaza plus venetoclax in April, at [facility]. Patient was followed by Dr. Juárez at [facility] hematology and also followed at [facility] hematology up until September, when he decided to [facility] to the halfway. Was not a candidate for SCT per last onc consult note and has a form of AML that tends to be more likely to relapse and be refractory to treatment. Recent admissions requiring transfusions 12/23-12/24 and 01/07-01/09. Met with palliative care Dr. Jorge and onc Dr. Easton and elected to keep his treatment with oncologist at the halfway. #Pancytopenia due to AML: neutropenia and severe thrombocytopenia with Plt 2, symptomatic anemia minor mucosal bleeding only thus far, no evidence of significant acute bleeding no evidence of infection at this time, no bleeding while in hosptial ED discussed with Dr. Easton recommended goal Hgb > 7, goal platelet > 15 - transfused 2 units RBCs and 1 unit platelets. Hg 7.8 and Plt 35 today. BMP was normal - no evidence of infection - full code and full care per pall care notes - he confirms this for me - Has oncology appoint on 02/03 and hematology appointment on 02/11. intends to keep following up with the halfway oncologist and hematology at [facility] #Anxiety/bipolar 2/mental health Continue doxepin Continue hydroxyzine Continue Trileptal - would benefit from switching to Latuda given bone marrow suppression Continue prazosin I will ordered these medications as per last discharge, unfortunately, I do not have a med list from the halfway today Discussed with provider legal paraprofessional for [facility], accepted for discharge Admission HPI Per Admitting Provider 65-year-old man with AML who has recently been transfusion dependent sent in from [facility] with severe thrombocytopenia and anemia. The last few days he has had some bleeding from his gums including after brushing teeth and he woke up with some dried blood in his mouth today that is not currently bleeding. He has not noticed any other abnormal bleeding including no hematuria no melena or bright red blood per rectum. Generally he is feeling okay no fever chills or sweats, no cough shortness of breath or chest pain, no nausea vomiting diarrhea or abdominal pain, no dysuria or urinary urgency, no new skin problems petechial rash is unchanged, no acute joint pain. Discharge Exam PHYSICAL EXAMINATION Last 24h vital signs reviewed, see documentation in flowsheet General: comfortable appearing, no distress HEENT: Normocephalic, atraumatic, pupils round and equal, sclerae anicteric, no conjunctival injection, moist mucus membranes Lungs: Normal respiratory effort. Clear to auscultation bilaterally. No RRW Heart: Regular rate and rhythm, no murmurs. No JVD Abdomen: Soft, nontender, nondistended. Bowel sounds present. Extremities: Warm, dry, well-perfused. No extremity edema. skin: Warm and dry, petechial rash especially on distal extremities Neuro: Alert and oriented x 4, face symmetric, moves 4 extremities well Psych: Normal affect and behavior Discharge Plan Discharge Items [facility] Reason For Visit: PANCYTOPENIA, AML Discharge Diagnosis: Pancytopenia, AML Condition on Discharge: Fair Activity: Resume your previous activity Non-emergency contact: Primary Care Provider and Oncologist Call non-emergency contact if: you have any medication questions and your symptoms worsen Follow-up/Referrals: [place] [facility] [Primary Care Provider] - Diet: Regular Addtl Attending Provider Instructions: transfused 2 units RBCs and a unit of platelets on 01/25 Hg 7.9 and Platelets 35 K transfusion triggers per oncology Hg <7, Plt <15K weekly CBC follow up with Oncology and Hematology as previously scheduled no fresh or dried walls or plants in his room because of neutropenia (risk of aspergillus infection) may have regular diet - there is no clinical evidence to support neutropenic diets wear surgical mask when out of cell around others It was a pleasure taking care of you in the hospital, Lucy Garcia MD Pending Studies at Discharge: No Stand-Alone Forms: My [facility] Skilled Items Patient informed of condition?: Yes Discharge Level of Care: Other Communicable Disease: No Discharge Prognosis: Stable Lines: None Urinary Catheter: No Medications and DC Order Prescriptions: Continued oxcarbazepine 300 mg Tablet 300 mg PO BID Rx Instructions: CRUSH TOTAL DOSE 450 MG--TAKES WITH 150 MG TAB. oxcarbazepine 150 mg Tablet Extended Release 24 Hr 150 mg PO BID Rx Instructions: CRUSH TOTAL DOSE 450 MG--TAKES WITH 300 MG TAB. hydroxyzine pamoate 50 mg Capsule 100 mg PO HS Rx Instructions: CRUSH doxepin 100 mg Capsule 100 mg PO HS Rx Instructions: CRUSH prazosin 2 mg Capsule 4 mg PO HS Rx Instructions: CRUSH multivitamin Tablet 1 tab PO DAILY cyanocobalamin (vitamin B-12) [Vitamin B-12] 500 mcg Tablet 500 mcg PO DAILY hydroxyzine pamoate 25 mg Capsule 25 mg PO DAILY Rx Instructions: ALANA Discharge Orders: Discharge Order (Routine); Ordered 01/25/25 Ordered By: Lucy Garcia Admission Data Admit Date/Time: 01/24/25 19:09 Attending Provider: Lucy Garcia Admit Provider: Lucy Garcia Primary Care Provider: [place] [facility] Other Providers: Lucy Garcia Hospital Stay Data Consultations 01/24/25 18:12 ED Decision to Admit Stat Pending Results Patient Have Any Pending Studies at Discharge: No Discharge Instructions Given to Patient (Per Discharging Provider) transfused 2 units RBCs and a unit of platelets on 01/25 Hg 7.9 and Platelets 35 K transfusion triggers per oncology Hg <7, Plt <15K weekly CBC follow up with Oncology and Hematology as previously scheduled no fresh or dried walls or plants in his room because of neutropenia (risk of aspergillus infection) may have regular diet - there is no clinical evidence to support neutropenic diets wear surgical mask when out of cell around others It was a pleasure taking care of you in the hospital, Lucy Garcia MD Total Time Total Time Spent Total Time Spent (In Minutes): <30 Coding Level of Care Code 51573 IN/OBS DISCH 30 MIN/LESS Diagnoses AML (acute myeloblastic leukemia) C92.00 Thrombocytopenia D69.6 Neutropenia D70.9 Pancytopenia D61.818 Bipolar 2 disorder F31.81
[2025-01-25 15:34] VITALS: PULSE 71
== END 2025-01-25 15:10 | DRG 835 ==
LOC: ED 15:35 → 2S 19:09